=== PATIENT | female | born 1965 | race Caucasian/White ===

== ENCOUNTER 2020-08-06 17:39 | Emergency (ER) | payer OTHER, SELFPAY ==
--- NOTE | 2020-08-06 | XR_ITS ---
EXAMINATION: XR CHEST CLINICAL INFORMATION: Cough with increased mucous and chest pain at night COMPARISON: Chest radiograph 05/18/2018 TECHNIQUE: 2 views of the chest were obtained. FINDINGS: No significant abnormality is noted involving the heart, lungs, mediastinum, bony thorax or soft tissues. Again seen are changes of median sternotomy and an aortic valve prosthesis. A tiny scar is present in the left costophrenic angle. IMPRESSION: No acute intrathoracic disease
[2020-08-06 17:50] VITALS: BP 159/77; PULSE 74; RESP 18; TEMP 36.7; O2SAT 98; BMI 34.9
[2020-08-06 18:12] VITALS: BP 150/78; PULSE 76; RESP 16; TEMP 36.8; O2SAT 98
--- NOTE | 2020-08-06 19:08 | ED.URI ---
HPI - URI/Sore Throat General Chief Complaint: Upper Respiratory Symptoms Stated Complaint: Upper Resp Time Seen by Provider: 08/06/20 18:56 Source: patient Mode of arrival: ambulatory History of Present Illness HPI Narrative: 54-year-old female with no significant past medical history complaining of postnasal drip, productive cough, chest congestion times 5 days. Reports had negative COVID-19 swab on the 6th. Denies fever, chills, CP / SOB, recent travel. Positive sick contacts MD elicited complaint: cough Related Data Previous Rx's Medication Instructions Recorded albuterol sulfate 2 inh INHALATION Q4-6H PRN #1 ea 08/06/20 azithromycin [Zithromax Z-Nico] See Rx Instructions .ROUTE 08/06/20 .COMPLEX #6 tab benzonatate [Tessalon Perles] 100 mg PO TID PRN #14 cap 08/06/20 Allergies Allergy/AdvReac Type Severity Reaction Status Date / Time oxycodone [From PERCOCET] Allergy Intermediate MOOD Verified 08/06/20 17:50 LABILE/DEPRESSION hydromorphone [From DILAUDID] Allergy Unknown AFTER OPEN Unverified 07/14/20 17:01 HEART SURGERY Review of Systems Review of Systems: Constitutional: No Weight loss, No Fever, No Chills, No Night Sweats ENT/Mouth: No Hearing loss, No Ear Pain, + Nasal Congestion, No Sinus Pain, No Hoarseness, No sore throat, + Rhinorrhea, No Swallowing Difficulty Eyes: No Eye Pain, No Swelling, No Redness, No Foreign Body, No Discharge, No Vision Changes Cardiovascular: No Chest Pain, No SOB, No Dyspnea on Exertion Respiratory: + Cough, + Sputum, No Wheezing, No Dyspnea Gastrointestinal: No Nausea, No Vomiting, No Diarrhea, No Constipation, No Abdominal pain Skin: No Skin Lesions, No rash Neuro: No Weakness, No Numbness, No Paresthesias, No Loss of Consciousness, No Dizziness, No Headache Yes all other systems are reviewed and are negative [facility] Past Medical History Attestation statement: The following information was validated with the patient. Surgical History (Updated 08/06/20 @ 17:55 by Shona Alexandra) Aortic valve replaced Social History Social History Alcohol intake: never Smoked in Last 30 Days: No Use of substances other than those prescribed or required for medical reasons: No Any prior treatment program specific to substance use: No Advance Directives: No Advance Directives Information Provided: Yes Physical Exam Vital Signs: Vital Signs: Vital Signs Temp Pulse Resp BP Pulse Ox 08/06/20 18:12 98.3 F 76 16 150/78 H 98 08/06/20 17:50 98.1 F 74 18 159/77 H 98 Body Mass Index 34.9 Const: General: cooperative and healthy appearing Orientation/consciousness: patient oriented x3 Limitations: no limitations HENMT: Head: Yes normal to inspection Ears: hearing grossly normal bilaterally General nose exam: Normal external nose present Face and sinus: Yes normal facial exam Eyes: General: appearance normal, both eyes and all related structures EOM: EOMs intact bilaterally Neck: Neck: Yes normal visual inspection Resp: Effort & Inspection: normal respiratory effort and no stridor Auscultation: clear to auscultation bilaterally, no crackles, no rales, no rhonchi and no wheezes Cardio: Rate: regular rate Heart sounds: S1 normal heart sound present and S2 normal heart sound present Peripheral pulses: Peripheral pulses 2+ throughout Skin: Wounds: no wounds Neuro: General: patient oriented x3 Course Course Course Narrative: CXR unremarkable MDM - URI/Sore Throat MDM Narrative Medical decision making narrative: likely viral syndrome / COVID-19 versus bronchitis versus pneumonia Discharge Plan Discharge Clinical Impression: Upper respiratory infection Patient Disposition: Home, Self-Care Instructions: Upper Respiratory Infection (ED) Additional Instructions: start taking Z-Nico In addition use albuterol inhaler for shortness of breath/cough Test on present for coughing, take as needed You to follow-up the primary care doctor Will call you for COVID-19 resulting in 72 hours positive or negative, in the meantime self isolate Based on your symptoms and history we have sent a COVID-19. Although your RESULT IS PENDING at this time. RESULTS should return within 72 hours. At this time you will be contacted with either NEGATIVE OR POSITIVE results. -Please wait until we contact you for your results. At this time you will be okay for discharge. Please plan for self quarantine for up to 14 days. Do not expose yourself to others. You may not go to work. If testing does come back negative you may return to activities as long as you are no longer having any symptoms for at least 3 days. Please continue to follow cold instructions and wash your hands frequently. You may take Tylenol as directed on the bottle for pain or fever. Patient seen in the emergency department on 04/22/2020 and should be excused from work until negative test results AND until 72 hours without any symptoms AND at least 10 days have passed since symptoms first appeared or since last exposure to COVID-19 positive patient CDC Guidelines for home isolation: - Stay away from others - WEAR A MASK if you are sick AND STAY HOME - Cover your mouth and nose with a tissue when you cough or sneeze. Dispose of tissues in a lined trash can and wash your hands immediately with soap and water for at least 20 seconds. If soap and water are not available, clean hands with alcohol-based hand field clinical engineer that contains at least 60% alcohol. - Clean your hands often with soap and water for at least 20 seconds - Avoid touching your eyes, nose and mouth with unwashed hands - Do not share dishes, drinking glasses, cups, eating utensils, towels, or bedding with other people in your home. After using these items, wash them thoroughly with soap and water or put in the medical cash poster. - Clean high-touch surfaces in your isolation area ( sick room and bathroom) every day; let a caregiver clean and disinfect high-touch surfaces in other areas of the home. Clean the area or item with soap and water or another detergent if it is dirty. Then, use a household disinfectant. - Limit contact with pets and animals: If you must care for a pet, wash your hands before and after interacting with them Prescriptions: New azithromycin [Zithromax Z-Nico] 250 mg tablet See Rx Instructions .ROUTE .COMPLEX Qty: 6 RF: 0 albuterol sulfate 90 mcg/actuation aerosol powdr breath activated 2 inh inhalation Q4-6H PRN (Reason: shortness of breath or wheezing) Qty: 1 RF: 0 benzonatate [Tessalon Perles] 100 mg capsule 100 mg PO TID PRN (Reason: cough) Qty: 14 RF: 0 Referrals: Rosa De León MD [Primary Care Provider] - 3 days Stand Alone Forms: Work/School Release
== END 2020-08-06 19:36 | disposition home or self-care (01) ==
PROVIDERS: Physician Assistant; Emergency Provider Emergency Medicine Emergency Medical Services; PCP Internal Medicine
DX: J06.9 Acute upper respiratory infection, unspecified (principal); Z20.828 Contact with and (suspected) exposure to other viral communicable diseases; Z79.899 Other long term (current) drug therapy
CPT/HCPCS: 71046; 87635; 99283; 99284

== ENCOUNTER 2023-01-27 17:58 | Emergency (ER) | payer OTHER, SELFPAY ==
--- NOTE | ~2023-01-27 | CT_ITS ---
EXAMINATION: CT HEAD WITHOUT CONTRAST CT CERVICAL SPINE WITHOUT CONTRAST CLINICAL INFORMATION: Head trauma. COMPARISON: CT of the head 07/2014. TECHNIQUE: CT scan of the head is performed without contrast with reconstruction imaging performed at the acquisition workstation. CT of the cervical spine was performed without contrast with reconstruction imaging performed at the acquisition workstation. FINDINGS: CT HEAD: SOFT TISSUES: Normal. BONE: No fracture. SINUSES: Clear. MASTOID AIR CELLS: Clear. There is no mass hemorrhage or cerebral edema. Ventricles and basal cisterns are normal. CERVICAL SPINE: Vertebral bodies are normally aligned. There is no fracture or dislocation. There are degenerative disc changes at C5-C6 manifested by disc space narrowing and endplate osteophytes. There is advanced facet arthrosis at the C2-C3, C3-C4 level on the left side. Surrounding soft tissues are unremarkable. CT/CT head/brain wo IV con IMPRESSION: CT HEAD: No acute abnormality. CT CERVICAL SPINE: 1. No acute abnormality. 2. Degenerative spondylosis of the cervical spine.
--- NOTE | ~2023-01-27 | CT_ITS ---
EXAMINATION: CT HEAD WITHOUT CONTRAST CT CERVICAL SPINE WITHOUT CONTRAST CLINICAL INFORMATION: Head trauma. COMPARISON: CT of the head 07/2014. TECHNIQUE: CT scan of the head is performed without contrast with reconstruction imaging performed at the acquisition workstation. CT of the cervical spine was performed without contrast with reconstruction imaging performed at the acquisition workstation. FINDINGS: CT HEAD: SOFT TISSUES: Normal. BONE: No fracture. SINUSES: Clear. MASTOID AIR CELLS: Clear. There is no mass hemorrhage or cerebral edema. Ventricles and basal cisterns are normal. CERVICAL SPINE: Vertebral bodies are normally aligned. There is no fracture or dislocation. There are degenerative disc changes at C5-C6 manifested by disc space narrowing and endplate osteophytes. There is advanced facet arthrosis at the C2-C3, C3-C4 level on the left side. Surrounding soft tissues are unremarkable. CT/CT cervical spine wo IV con IMPRESSION: CT HEAD: No acute abnormality. CT CERVICAL SPINE: 1. No acute abnormality. 2. Degenerative spondylosis of the cervical spine.
[2023-01-27 18:07] VITALS: BP 180/100; PULSE 60; O2SAT 99; BMI 36.4
[2023-01-27 18:10] VITALS: BP 166/77; PULSE 63; RESP 18; TEMP 36.3; O2SAT 100
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
[2023-01-27] MEDS: Acetaminophen 325 MG TABLET 975 MG PO (18:24)
[2023-01-27 19:24] VITALS: BP 144/58; PULSE 59; RESP 12; TEMP 36.6; O2SAT 100
--- NOTE | 2023-01-27 19:25 | PC.NURSE ---
Pt aox4 resting at the bedside. No apparent distress noted. Pt in c-collar, pending ct scan results. VSS. Reports neck pain, /. Pt aware of plan of care.
[2023-01-27 21:15] VITALS: BP 144/68; PULSE 58; RESP 18
[2023-01-27 21:57] VITALS: BP 144/61; PULSE 59; RESP 14; TEMP 36.4; O2SAT 98
--- NOTE | 2023-01-27 21:59 | PC.NURSE ---
Pt aox4 resting at the bedside. No apparent distress noted. Discharge instructions reviewed with pt. Pt verbalizes understanding.
== END 2023-01-27 22:00 | disposition home or self-care (01) ==
PROVIDERS: Emergency Provider Emergency Medicine Emergency Medical Services
DX: S13.4XXA Sprain of ligaments of cervical spine, initial encounter (principal); S06.0X0A Concussion without loss of consciousness, initial encounter; M54.2 Cervicalgia; R51.9 Headache, unspecified; V43.52XA Car driver injured in collision with other type car in traffic accident, initial encounter; Y93.9 Activity, unspecified; Y92.410 Unspecified street and highway as the place of occurrence of the external cause; Y99.9 Unspecified external cause status; Z79.899 Other long term (current) drug therapy
CPT/HCPCS: 70450; 72125; 99284

== ENCOUNTER 2025-02-22 13:07 | Emergency (ER) | payer OTHER, SELFPAY ==
[2025-02-22 13:13] VITALS: BP 164/98; PULSE 113; RESP 16; TEMP 36.6; O2SAT 98; BMI 34.6
--- NOTE | 2025-02-22 13:16 | ED_ITS ---
HPI - General Adult General Chief complaint: General Medical Stated complaint: high BP Related Data Previous Rx's ?Medication ?Instructions ?Recorded albuterol sulfate 90 mcg/actuation 2 inh inhalation Q4-6H PRN 08/06/20 breath activated powder inhaler shortness of breath or wheezing #1 ea azithromycin 250 mg tablet See Rx Instructions PO .COMPLEX #6 08/06/20 (Zithromax Z-Nico) tabs benzonatate 100 mg capsule 100 mg PO TID PRN cough #14 caps 08/06/20 (Tessalon Perles) cyclobenzaprine 10 mg tablet 10 mg PO TID PRN muscle spasm #14 01/27/23 tabs ibuprofen 600 mg tablet 600 mg PO QID PRN pain #90 tabs 01/27/23 Allergies Allergy/AdvReac Type Severity Reaction Status Date / Time oxycodone [From PERCOCET] Allergy Intermediate MOOD Verified 02/22/25 13:18 LABILE/DEPRESSION hydromorphone [From DILAUDID] Allergy Unknown AFTER OPEN Verified 02/22/25 13:18 HEART SURGERY [facility] Past Medical History Surgical History Aortic valve replaced Social History Social History (System 08/09/23 @ 11:37 by Hilda Armijo) Alcohol intake: never Advance Directives: No Advance Directives Information Provided: No Do you have a plan to hurt others: No Plan Physical Exam ED Vital Signs: Vital Signs - 24 hr 02/22/25 13:13 Temperature 97.9 F Pulse Rate 113 H Respiratory Rate 16 Blood Pressure 164/98 H Pulse Oximetry 98 Oxygen Delivery Method Room Air BMI result Body Mass Index 34.6 Course Course Course Narrative: RME, this is a rapid medical exam performed by Shayan Montgomery please refer to primary provider for complete H&P- 59-year-old female with past medical history significant for paroxysmal AFib, hypertension maintained on metoprolol 100 mg b.i.d. reports a fast heart rate since this morning. Denies chest pain. She denies any shortness of breath as well. She took an additional dose of metoprolol 100 mg this afternoon due to tachycardia. Plan for EKG and labs. Her heart rate is around 110 but appears regular in triage Medical Decision Making Lab Data 02/22/25 13:30 02/22/25 13:30 Labs: Lab Results 02/22/25 Range/Units 13:30 WBC 4.0 L (4.8-10.8) X10*3/uL RBC 4.23 (4.20-5.50) X10*6/uL Hgb 12.6 (12.0-16.0) g/dl Hct 38.3 (37.0-47.0) % MCV 90.5 (80.0-98.0) fL MCH 29.8 (27.0-33.0) pg MCHC 32.9 (31.0-35.0) g/dl RDW 12.2 (11.0-16.0) % Plt Count 258 (160-400) X10*3/uL MPV 8.7 L (9.4-12.3) fL Immature Gran % (Auto) 0.3 (0.0-0.4) % Neut % (Auto) 55.6 (45-73) % Lymph % (Auto) 29.4 (20-40) % [place] % (Auto) 9.6 (2-11) % Eos % (Auto) 4.3 H (0-4) % Baso % (Auto) 0.8 (0-2) % Lymph # (Auto) 1.2 (1.2-4.9) X10*3/uL [place] # (Auto) 0.4 (0.1-1.2) X10*3/uL Eos # (Auto) 0.2 (0.0-0.4) X10*3/uL Baso # (Auto) 0.0 (0.0-0.2) X10*3/uL Abs Immat Gran (auto) 0.01 (0.00-0.03) X10*3/uL Absolute Neuts (auto) 2.2 (2.0-8.3) x10*3/uL Absolute Nucleated RBC 0.000 (0.0-0.012) X10*3/uL Nucleated RBC % (auto) 0.0 (0.0-0.2) /100WBC Sodium 139 (135-145) mmol/L Potassium 4.6 (3.3-5.1) mmol/L Chloride 105 (96-108) mmol/L Carbon Dioxide 26 (22-29) mmol/L Anion Gap 13 (12-20) BUN 17 H (9-16) mg/dL Creatinine 0.82 (0.5-1.4) mg/dL Estim Creat Clear Calc 84.8 Estimated GFR > 60 Random Glucose 97 (60-115) mg/dL Calcium 8.9 (8.4-10.2) mg/dL Magnesium 2.2 (1.6-2.6) mg/dL Total Bilirubin 0.4 (0.0-1.0) mg/dL AST 32 H (5-31) U/L ALT 19 (0-31) U/L Alkaline Phosphatase 88 (39-117) U/L Total Protein 7.5 (6.5-8.0) g/dL Albumin 4.3 (3.5-5.0) g/dL Lipase 31 (8-78) U/L Discharge Plan Discharge Clinical Impression: Heart palpitations Patient Disposition: Left Without Being Seen Interventions: LWBS Worksheet Last Done: 02/22/25 16:16 Discharge Date/Time: 02/22/25 16:17
--- NOTE | 2025-02-22 13:17 | ECG_ITS ---
Test Reason : chest pain Blood Pressure : */* mmHG Vent. Rate : 97 BPM Atrial Rate : * BPM P-R Int : * ms QRS Dur : 82 ms QT Int : 344 ms P-R-T Axes : * 21 45 degrees QTcB Int : 436 ms Atrial fibrillation Low voltage QRS Septal infarct (cited on or before 18-May-2018) Abnormal ECG When compared with ECG of 18-May-2018 18:40, Atrial fibrillation has replaced Sinus rhythm Nonspecific T wave abnormality no longer evident in Lateral leads Referred By: Roberto Montgomery Electronically Signed By: Raul Lopez
[2025-02-22 13:34] LABS: MANUAL DIFF FLAG NO
[2025-02-22 13:36] LABS: Basophils Percent Auto 0.8 % (0-2); Eosinophils Absolute Auto 0.2 X10*3/uL (0.0-0.4); Eosinophils Percent Auto 4.3 % (0-4); Hematocrit 38.3 % (37.0-47.0); Hemoglobin 12.6 g/dl (12.0-16.0); Imm Gran Abs Auto 0.01 X10*3/uL (0.00-0.03); Imm Gran Pct Auto 0.3 % (0.0-0.4); Lymphocytes Absolute Auto 1.2 X10*3/uL (1.2-4.9); Lymphocytes Percent Auto 29.4 % (20-40); Mean Corpuscular HGB Conc 32.9 g/dl (31.0-35.0); Mean Corpuscular Hemoglobin 29.8 pg (27.0-33.0); Mean Corpuscular Volume 90.5 fL (80.0-98.0); Mean Platelet Volume 8.7 fL (9.4-12.3); Monocytes Absolute Auto 0.4 X10*3/uL (0.1-1.2); Monocytes Percent Auto 9.6 % (2-11); Neutrophils Absolute Auto 2.2 x10*3/uL (2.0-8.3); Neutrophils Percent Auto 55.6 % (45-73); Platelet Count 258 X10*3/uL (160-400); Red Blood Count 4.23 X10*6/uL (4.20-5.50); Red Cell Distribution Width 12.2 % (11.0-16.0)
[2025-02-22 13:52] LABS: Alanine Aminotransferase 19 U/L (0-31); Albumin Level 4.3 g/dL (3.5-5.0); Alkaline Phosphatase 88 U/L (39-117); Anion Gap 13 (12-20); Aspartate Amino Transferase 32 U/L (5-31); Bilirubin Total 0.4 mg/dL (0.0-1.0); Blood Urea Nitrogen 17 mg/dL (9-16); Calcium 8.9 mg/dL (8.4-10.2); Carbon Dioxide 26 mmol/L (22-29); Chloride 105 mmol/L (96-108); Creatinine Clr Calc Pharmacy 84.8; Estimated Glomerular Filt Rate > 60; Glucose Random 97 mg/dL (60-115); Lipase 31 U/L (8-78); Magnesium 2.2 mg/dL (1.6-2.6); Potassium 4.6 mmol/L (3.3-5.1); Sodium 139 mmol/L (135-145); Total Protein 7.5 g/dL (6.5-8.0)
--- OUTSIDE RECORDS SUMMARY | 2025-02-22 18:51 | XMS_ITS | Clinical Summary ---
Author Organization [facility] Address [address] [place] [address] Phone Care Team Providers Care [employer] Program Director Name Role Phone Nicole Wright MD Primary Care Provider [phone] Allergies No known active allergies Medications amiodarone (PACERONE) 200 mg tablet See Instructions, Take 2 tablets by mouth 2 times per day for 7 days, then take 1 tablet daily thereafter, # 50 tablet, Refills 0, Tot. Refills 0, Maintenance, 06/25/24 12:22:00 EDT, Instructions Replace Required Details, Route to Pharmacy [facility]... 4 Active magnesium oxide (MAG-OX) 400 mg (241.3 elemental magnesium) tablet TAKE 1 TABLET BY MOUTH EVERY DAY 4 Active metoprolol tartrate (LOPRESSOR) 100 mg tablet Take 1.5 Tablets by mouth 2 times daily. 4 Active warfarin (COUMADIN) 5 mg tablet Take 5 mg by mouth See Admin Instructions. May cause heavy bleeding. Take at same time every day. Do not change dietary habits. Active amiodarone (PACERONE) 200 mg tablet Take 1 tablet (200 mg total) by mouth 1 (one) time each day. 4 Active magnesium oxide (MAG-OX) 400 mg (241.3 elemental magnesium) tablet Take 1 tablet (400 mg total) by mouth 1 (one) time each day. 4 Active metoprolol succinate (TOPROL-XL) 100 mg 24 hr tablet Take 1.5 tablets (150 mg total) by mouth 2 (two) times a day. 5 Active warfarin (COUMADIN) 5 mg tablet TAKE 1 - 2 TABLETS BY MOUTH ONCE DAILY DIRECTED BY [facility]ADIN CLINIC 5 Active omeprazole (PriLOSEC) [address] capsule TAKE 1 CAPSULE BY MOUTH EVERY DAY 90 capsule 5 Active omeprazole (PriLOSEC) [address] capsule TAKE 1 CAPSULE BY MOUTH TWICE A DAY 4 025 Discontin ued(Dupli roslyn order) omeprazole (PriLOSEC) [address] capsule Take 1 capsule (40 mg total) by mouth 2 (two) times a day. 180 capsule 1 5 025 Discontin ued(Dupli roslyn order) Active Problems Problem Noted Date Diagnosed Date COVID-19 01/16/2022 Eczema 04/27/2021 Anxiety 01/13/2019 GERD (gastroesophageal reflux disease) 9 Iron deficiency anemia 01/13/2019 Aortic valve disorder 01/22/2007 Overview (10/13/2024): Had aortic valve replacment in 2010, Dr. 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 moderate AR, trivial mitrl valvular regurg Encounters Date Type Department Care Team Description 12/24/2024 9:43 PM EST - 12/24/2024 11:36 PM EST Emergency [facility] Emergency [address] [place] [address] Numbness (Primary Dx); Aortic valve disorder Discharge Disposition: Left Against Medical Advice from Last 3 Months Immunizations Name Administration Dates Next Due Influenza trivalent, 0.5mL, preservative free (Fluarix; FluLaval; Fluzone) ages 6mo and older (Afluria) 3 years and older 07/15/2024,08/22/2020 Meningococcal Polysaccharide 03/23/2005 PPD Test 03/05/2005 Td, Unspecified 03/23/2005 Surgical History Surgery Date Site/Laterality Comments TUBAL LIGATION PROCEDURE: HISTORICAL TUBAL LIGATION CARDIAC SURGERY PROCEDURE: HISTORICAL HEART SURGERY(ASD,VSD,VALVES); COMMENT: in , aortic valve replacement Medical History Medical History Date Comments Iron deficiency anemia 01/13/2019 DX:Iron d eficiency anemia Atrial fibrillation (CMS/HCC V24, CMS/HCC V28) 01/22/2007 DX:Atrial fibrillation ([facility]) ; 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 moderate AR, trivial mitrl valvular regurg Aortic valve disorder 01/22/2007 DX:Aortic valve disorder; COMMENT: Had aortic valve replacment in 2010, Dr. Castellanos, mechanical valve GERD (gastroesophageal reflux disease) 01/13/2019 DX:GERD (gastroesophageal reflux disease) Anxiety 01/13/2019 DX:Anxiety Family History Medical History Relation Name Comments Heart attack Father at age of 50 Relation Name Status Comments Brother Alive Father Maternal Grandfather Maternal Grandmother Mother Alive Paternal Grandfather Paternal Grandmother Sister 1 Alive Sister 2 Alive Sister 3 Alive Social History Tobacco Use Types Packs/Day Years Used Date Smoking Tobacco: Never Smokeless Tobacco: Never Alcohol Use Standard Drinks/Week Comments Yes 0 (1 standard drink = 0.6 oz pur e alcohol) Comments Unknown Sex and Gender Information Value Date Recorded Sex Assigned at Not on file Legal Sex Female 2:37 AM EST Gender Identity Not on file Sexual Orientation Not on file Obstetrics History Last Filed Vital Signs Vital Sign Reading Time Taken Comments Blood Pressure 135/65 12/24/2024 9:53 PM EST Pulse 64 12/24/2024 9:53 PM EST Temperature 36.4 ??C (97.5 ??F) 12/24/2024 9:53 PM ES T Respiratory Rate 16 12/24/2024 9:53 PM EST Oxygen Saturation 97% 12/24/2024 9:53 PM EST Inhaled Oxygen Concentration - - Weight 93.4 kg (206 lb) 12/24/2024 9:53 PM EST Height 165.1 cm (5' 5 ) 12/24/2024 9:53 PM EST Body Mass Index 34.28 12/24/2024 9:53 PM EST Plan of Treatment Upcoming Encounters Date Type Department Care Team (Late st Contact Info) Description 04/12/2025 12:45 PM EDT Office Visit Adult Medicine [facility] [place] [address] [place] [phone] Ed Chan PA [address] [place] [address] Health Maintenance Due Date Last Done Comments Breast Cancer Screening 1966 Hepatitis B Vaccines (1 of 3 - 19+ 3-dose series) 1985 Cervical Cancer Screening: P ap Smear 12/23/2009 12/23/2006, 12/23/2006 DTaP,Tdap,and Td Vaccines (2 - Td or Tdap) 03/23/2015 03/23/2005 Pneumococcal Vaccine: 50+ Years (1 of 1 - PCV) 2016 Zoster Vaccines (1 of 2) 2016 Colorectal Cancer Screening: Colonoscopy 10/04/2022 Depression Screening 10/04/2022 HIV Screening 10/04/2022 Hepatitis C Screening 10/04/2022 Social Influencers of Health Screening 10/04/2022 COVID-19 Vaccine ( - 2023-2 5 season) 2024 Cholesterol Screening (Lipid Panel) 05/18/2026 05/18/2021 Meningococcal ACWY Vaccine Aged Out 03/23/2005 N o longer eligible based on patient's age to complete this topic Influenza Vaccine Completed 07/15/2024, 08/22/2020 HIB Vaccines Aged Out No longer eligi ble based on patient's age to complete this topic HPV Vaccines Aged Out No longer eligi ble based on patient's age to complete this topic Hepatitis A Vaccines Aged Out No long er eligible based on patient's age to complete this topic IPV Vaccines Aged Out No longer eligi ble based on patient's age to complete this topic MMR Vaccines Aged Out No longer eligi ble based on patient's age to complete this topic Meningococcal B Vaccine Aged Out No l onger eligible based on patient's age to complete this topic Pneumococcal Vaccine: Pediatrics (0 to 5 Years) and At-Risk Patients (6 to 64 Years) Aged Out No longer eligible b ased on patient's age to complete this topic RSV Immunization Patients Under 20 months Aged Out No longer eligible b ased on patient's age to complete this topic Varicella Vaccines Aged Out No longer eligible based on patient's age to complete this topic Procedures Procedure Name Priority Date/Time Associated Diagnosis Comments VAS US DUPLEX UPPER EXT VENOUS RIGHT STAT 12/24/2024 11:10 PM EST Numbness POCT GLUCOSE BLOOD Routine 12/24/2024 10 :01 PM EST LIPID PANEL Routine 05/18/2021 HM HPV Routine 12/23/2006 from Last 3 Months or Most Recently Relevant to Health Maintenance Results * Vascular US duplex upper extremity venous right (12/24/2024 11:10 PM EST) Anatomical Region Laterality Modality Vascular, Abdomen Ultrasound 12/25/2024 3:32 AM EST Impressions 12/25/2024 3:37 AM EST No evidence of right upper extremity deep vein thrombosis. -------- FINAL REPORT -------- Dictated By: Lilly Morales Dictated Date: 12/25/2024 03:32 ET Assigned Physician: Lilly Morales Reviewed and Electronically Signed By: Lilly Morales Signed Date: 12/25/2024 03:37 ET Workstation ID: [id number] Transcribed By: Self Edit Transcribed Date: 12/25/2024 03:32 ET Narrative 12/25/2024 3:37 AM EST INDICATION: pain TECHNIQUE: Duplex venous compression ultrasound of the Right upper extremity FINDINGS: Normal flow and respiratory variation were seen within the internal jugular and subclavian veins. The axillary, cephalic, basilic and brachial veins compress normally throughout their length. Procedure Note Lilly Morales MD - 12/25/2024 INDICATION: pain TECHNIQUE: Duplex venous compression ultrasound of the Right upperextremity FINDINGS: Normal flow and respiratory variation were seen within the internaljugular and subclavian veins. The axillary, cephalic, basilic and brachialveins compress normally throughout their length. IMPRESSION: No evidence of right upper extremity deep vein thrombosis. -------- FINAL REPORT -------- Dictated By: Lilly Morales Dictated Date: 12/25/2024 03:32 ET Assigned Physician: Lilly Morales Reviewed and Electronically Signed By: Lilly Morales Signed Date: 12/25/2024 03:37 ET Workstation ID: [id number] Transcribed By: Self Edit Transcribed Date: 12/25/2024 03:32 ET Marleni ROMERO CV VASCULAR PROCEDURES Fin al Result * (ABNORMAL) POCT Glucose, blood (12/24/2024 10:01 PM EST) [facility] Glucose POCT 101(H) 70 - 100 mg/dL 12/24/2024 10:03 PM EST [facility] Blood Capillary blood specimen / Unknown 12/24/2024 10:01 PM EST 12/24/2024 10:04 PM EST Generic Provider Poct LAB POINT OF CARE TEST DOCKED DEVICE UNSOLICITED RESULTS Final Result [facility] [address] [place] [address], * (ABNORMAL) Lipid panel (05/18/2021) [facility] LDL/HDL Ratio 3 0 - 4 Triglycerides 115 0 - 150 mg/dL Cholesterol 193 0 - 200 mg/dL HDL 61 >=40 mg/dL LDL Cholesterol 109(A) 0 - 100 mg/dL Blood Venous blood specimen / Unknown Historical Provider LAB BLOOD ORDERABLES Sanaz l Result * Cervical Cancer Screening: HPV (12/23/2006) [facility] Cervical Cancer Screening: HPV no interpretation , abstracted us Historical Provider HEALTH MAINTENANCE Final Result from Last 3 Months or Most Recently Relevant to Health Maintenance Insurance MEDICAID - [place] Care Teams 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
--- OUTSIDE RECORDS SUMMARY | 2025-02-22 18:51 | XMS_ITS | Patient Health Record ---
Author Organization [facility] Address [address] [place] [address] Care Team Providers Care Tooler Name Role Phone Donna Easley Unavailable [phone] MARJORIE SOL Unavailable [phone] DESIREE ROCHA Unavailable [phone] ALLERGIES Allergen (clinical drug ingredient) Drug/Non Drug Allergy documented on EMR Reaction Allergy Type Onset Date Status semaglutide Wegovy tachycardia Drug Allergy Act piper RESULTS Component Value Reference Range Notes GLYCOHEMOGLOBIN PROFILE Reviewed date:04/22/2024 09:46:16 AM Interpretation: Performing Lab: Notes/Report: GLYCATED HEMOGLOBIN A1C 5.0 <6.5 % ESTIMATED AVERAGE GLUCOSE 97 COMPREHENSIVE METABOLIC PANE L Reviewed date:04/22/2024 09:46:04 AM Interpretation: Performing Lab: Notes/Report: Note Original Orderi ng Provider: DONNA EASLEY PA-C GLUCOSE 97 70-100 mg/dL Reference range applicable to fasting specimens only BUN 19 5-25 mg/dL CREAT 1.08 0.5-1.1 mg/dL GLOMERULAR FILTRATION RATE 60 >60 This eGFR result was calculated using the CKD-EPI 2020 Creatinine Equation SODIUM 140 135-145 mEq/L POTASSIUM 4.2 3.5-5.5 mmol/L CHLORIDE 109 96-110 mmol/L CO2 28 21-32 mmol/L ANION GAP 3 3-11 CALCIUM 9.4 8.5-10.5 mg/dL TOTAL PROTEIN 7.3 6.0-8.0 G/dL ALBUMIN 4.1 3.2-5.0 G/dL BILI,TOTAL 0.3 0.0-1.4 mg/dL SGOT 23 10-42 U/L SGPT 17 10-60 U/L ALK PHOS 75 42-121 U/L CBC WITH AUTO DIFF Reviewed date:04/22/2024 09:46:51 AM Interpretation: Performing Lab: Notes/Report: WBC 4.4 4.8-10.8 x10-3/uL RBC 4.5 3.8-4.8 x10-6/uL HEMOGLOBIN 13.6 11.5-16.0 g/dL HEMATOCRIT 41.7 35-47 % MCV 91.9 79-98 fL MCH 30.0 27-32 pg MCHC 32.6 32-37 g/dL RDW 13.4 11-15 % PLT COUNT 271 130-400 x10-3/uL MEAN PLATELET VOLUME 9.3 7-11 fL NRBC % AUTO 0.0 <1 % NEUT % 56.6 LYMPH % 30.0 MONO % 8.2 EOS % 4.3 BASO % 0.7 IMMATURE GRANULOCYTES % 0.2 NRBC # AUTO 0.00 <0.1 x10-3/uL ABSOLUTE NEUT 2.47 1.5-7.0 x10-3/uL LYMPH # 1.31 1-5.0 x10-3/uL MONO # 0.36 0.2-1.0 x10-3/uL EOS # 0.19 0-0.5 x10-3/uL BASO # 0.03 0-0.2 x10-3/uL IMMATURE GRANULOCYTES # 0.01 0-0.03 x10-3/uL LIPID PROFILE Reviewed date:04/22/2024 09:45:37 AM Interpretation: Performing Lab: Notes/Report: CHOLESTEROL 222 0-200 mg/dL TRIGLYCERIDES 151 0-150 mg/dL TSH Reviewed date:04/22/2024 09:44:41 AM Interpretation: Performing Lab: Notes/Report: TSH 1.16 0.40-4.00 uIU/ml INSULIN LEVEL Reviewed date:04/22/2024 09:45:07 AM Interpretation: Performing Lab: Notes/Report: INSULIN LEVEL 49 3-25 mU/L Insulin reference range based on fasting status. Insulin values vary in non-fasting individuals. VIT D 1, 25-DIHYDROXY Reviewed date:04/28/2024 12:27:45 PM Interpretation: Performing Lab: Notes/Report: Note Original Ordering Provider: DONNA EASLEY PA-C [employer] a member of [address] [place] [address] Childcare Teacher - Merlyn Ryan MD VIT D,1,25-DIHYDROXY 49 20 - 79 pg/mL Vitamin D 1, 25 dihydroxy levels should be primarily used to assess Vitamin D status in patients with renal disease and hypercalcemia. Vitamin D 1,25-dihydroxy levels are generally less than 5 pg/mL in end stage renal disease patients. The preferred initial test for assessing Vitamin D status in the general population is Vitamin D 25-hydroxy (VITD). Test performed at [facility], [address] [place] [address] Anna Marcus MD, PhD - Childcare Teacher Note Original Ordering Provider: DONNA EASLEY PA-C [employer] [address] Childcare Teacher - Merlyn Ryan MD LIPID PROFILE Reviewed date:06/17/2024 09:20:21 AM Interpretation: Performing Lab: Notes/Report: CHOLESTEROL 215 0-200 mg/dL TRIGLYCERIDES 135 0-150 mg/dL REASON FOR REFERRAL No Information MEDICATIONS Medication SIG (Take, Route, Frequency, Duration) Notes Start Date End Date Status Magnesium Oxide 400 MG 1 tablet as neede d Orally Once a day Active Coumadin Active Metoprolol Succinate 100 MG 1 capsule Orally Once a day Active PriLOSEC OTC 20 MG 1 tablet 30 minutes before morning meal Orally Once a day Active SOCIAL HISTORY Tobacco Use: Social History Observation Description Date Details (start date - stop date) Never Smoker NA - NA Sex Assigned At : Social History Observation Description Sex Assigned At Unknown Tobacco Use/Smoking Question Answer Notes Are you a nonsmoker Alcohol Screen (Audit-C) Question Answer Notes Did you have a drink containing alcohol in the p ast year? Yes Points 0 Interpretation Negative PROBLEMS Problem Type ICD Code Onset Dates Problem Status W/U Status Risk SNOMED Code Notes Problem Vitamin D deficiency, unspecified (E55.9) Active confirmed 77231839 Problem Morbid (severe) obesity due to excess calories (E66.01) Active confirmed 93998867477680 Problem Hyperlipidemia, unspecified (E78.5) Active confirmed Hyperlipidemia (21533421) Problem Essential hypertension (I10) Active confirmed 12970191 Problem Body mass index [BMI] 38.0-38.9, adult (Z68.38) Active confirmed 815004673 Problem BMI 35.0-35.9,adult (Z68.35) Active confirmed 471758906 Problem BMI 36.0-36.9,adult (Z68.36) Active confirmed 921070104 Problem Current use of terminal superintendent anticoagulation (Z79.01) Active confirmed 474261116 Problem Aortic valve replaced (Z95.2) Active confirmed 5426444714334 VITAL SIGNS Heart Rate 66 /min 01/11/2025 Oximetry 98 % 01/11/2025 Blood pressure diastolic 84 mm Hg 01/11/2025 Height 64 in 01/11/2025 Blood pressure systolic 136 mm Hg 01/11/2025 Weight 204 lbs 01/11/2025 BMI 35.01 kg/m2 01/11/2025 Encounters Encounter Location Date Provider Diagnosis [facility] [address] [place] [address] [facility] [address] [place] [address] 04/21/2024 [facility] [address] [place] [address] 04/29/2024 [facility] [address] [facility] [address] [place] [address] 05/06/2024 [facility] [address] [place] [address] 05/13/2024 [facility] [facility] [place] [address] 05/14/2024 [facility] [address] [place], [place] 05/19/2024 [facility] [address] [place] [address] 05/21/[address] [facility] [address] [place] [address] 05/22/[address] [facility] [facility] [address] [place] [address] 05/26/2024 [facility] [address] [place] [address] 06/03/2024 DESIREE ROCHA [facility] [address] [facility] [address] [place], [place] 06/10/2024 DESIREE MAGA[facility] [address] [facility] [address] [facility] 119 [place], [place] 06/17/2024 [facility] [address] [facility] [address] [place] [address] 06/26/2024 Donna Svrcek [address] [facility] [address] [place], [place] 09/01/2024 Donna Svrcek Morbid (severe) obes ity due to excess calories E66.01 ; BMI 36.0-36.9,adult Z68.36 ; Essential hypertension I10 ; Aortic valve replaced Z95.2 and Current use of terminal superintendent anticoagulation Z79.01 [address] [address] 02/08/2025 Donna Svrcek Morbid (severe) obes ity due to excess calories E66.01 ; BMI 35.0-35.9,adult Z68.35 ; Essential hypertension I10 ; Aortic valve replaced Z95.2 and Current use of snf anticoagulation Z79.01 [address] 04/08/2024 Donna Svrcek Morbid (severe) obes ity due to excess calories E66.01 ; Body mass index [BMI] 38.0-38.9, adult Z68.38 ; Essential hypertension I10 ; Aortic valve replaced Z95.2 and Current use of terminal superintendent anticoagulation Z79.01 [address] [address] 05/28/2024 Donna Svrcek Morbid (severe) obes ity due to excess calories E66.01 ; BMI 36.0-36.9,adult Z68.36 ; Essential hypertension I10 ; Aortic valve replaced Z95.2 and Current use of snf anticoagulation Z79.01 [address] [address] 07/01/2024 Donna Svrcek Morbid (severe) obes ity due to excess calories E66.01 ; BMI 36.0-36.9,adult Z68.36 ; Essential hypertension I10 ; Aortic valve replaced Z95.2 and Current use of snf anticoagulation Z79.[address] [place] [address] 07/29/2024 Donna Svrcek Morbid (severe) obes ity due to excess calories E66.01 ; BMI 36.0-36.9,adult Z68.36 ; Essential hypertension I10 ; Aortic valve replaced Z95.2 and Current use of snf anticoagulation Z79.[address] [place] [address] 01/11/2025 Donna Svrcek Morbid (severe) obes ity due to excess calories E66.01 ; BMI 35.0-35.9,adult Z68.35 ; Essential hypertension I10 ; Aortic valve replaced Z95.2 and Current use of terminal superintendent anticoagulation Z79.[address] [facility] [address] [place] [address] 04/22/2024 Donna Svrcek [address] [place] [address] 04/29/2024 Donna Svrcek Hyperlipidemia, unspecified E78.[address] [facility] [address] [place] [address] 05/14/2024 Donna Svrcek [address] [place] [address] 05/21/2024 Donna Svrcek [address] [place] [address] 05/22/2024 Donna Svrcek [address] [place] [address] 07/01/2024 Donna Svrcek [address] [place] [address] 07/15/2024 Donna Svrcek [address] [place] [address] 12/28/2024 Donna Svrcek [address] [place] [address] 12/28/[address] [address] [facility] [address] [place] [address] 01/11/2025 Donna Svrcek [address] [place] [address] 02/09/2025 Donna Easley ASSESSMENTS Encounter Date Diagnosis Assessment Notes Treatment Notes Treatment Clinical Notes Section Notes 04/08/2024 Morbid (severe) obesity due to excess calories (ICD-10 - E66.01) #Morbid obesity. 223.9 pounds, BMI 38.1. New patient welcomed to the practice today Seca scale done and reviewed in detail with patient. Reviewed medical weight loss options in detail with patient including phentermine, Contrave, Wegovy, compounded semaglutide, Zepp bound, compounded tirzepatide, metformin, Topamax. She is most interested in Wegovy or compounded semaglutide. We reviewed risk benefits adverse effects of medication in detail. She will check with her insurance in regards to Wegovy coverage. We did discuss that [employer] sometimes will require 3 months of medical weight loss visits prior to coverage. Discussed compounded semaglutide program as an option here in the office which she would like to start today. Will get comprehensive labs and review at follow up visit. Patient will be started on Semaglutide compounded per our office protocol. They will start on 0.25 mg once weekly for weeks 1-4. They will follow up with me in 4 weeks at which time a repeat SECA scale will be reviewed. If Semaglutide has been tolerated well, the dose will increase to 0.5 mg once weekly for weeks 5-8. Follow up with the provider every 4 weeks with repeat SECA scale is required. If tolerated, dose will be increased to 1 mg after 8 weeks for weeks 9-12. Prior authorization for Wegovy will be started between weeks 11-13 and can take up to 4 weeks to complete. Out of pocket cost was reviewed with patient and escalating cost with escalating dose was reviewed. Discussed importance of supplementation with probiotics, B complex vitamins. We also reviewed lab monitoring routinely throughout. Discussed importance of protein intake, water intake, regular exercise and good sleep habits. The patient will continue exercise regimen with an emphasis on improving/increasing steps to at least 6,000-10,000 steps per day. Increasing cardio and strength training exercises as tolerated to improve weight loss and work on building muscle mass. Patient is committed to smarter eating with calorie counting and mindful eating. Limiting processed foods and carbohydrates and increasing leafy greens and lean proteins as well as fruits into their diet. Patient was counseled on the importance of eating local, organic food when possible. Patient has been counseled regarding effects of GLP/GIP-1 agonists and other FDA approved weight loss medications with regards to a multifactorial approach of weight loss as mentioned above and that the medication alone will not be sufficient to meet patients goals. We discussed holistic medication approach with emphasis on lifestyle modification. Discussed obesity as it increases risk of diabetes, cardiovascular disease, and/or organ damage. We spent a lot of time discussing the relationship between food, exercise, sleep, mental health, and obesity. We discussed the importance of having SECAs done every visit and having accountability done during these visits. That the scale is done to monitor not only weight loss but the body composition during medication management and healthy lifestyle changes. We discussed that if the patient is unable at times to financially afford this scale that we would rather waive the fee and have the scale done than have the patient not have the scale obtained. #HTN- currently well controlled, followed by PCP. #AVR- s/p AVR 2010. On coumadin. Weight Consult Plan: Patient has been found to be obese with a BMI of 38.1. Patient has class 2 obesity. Patient was reassured and welcomed to the practice. We discussed that we stress a hollistic medical approach with emphasis on lifestyle modification. Patient was informed that a healthy lifestyle with exercise and good eating habits can help reduce his risk of medical complications. He is explained that obesity increases his risk of diabetes, cardiovascular disease, or organ damage. We spent a lot of time discussing the relationship between food, exercise, sleep, mental health and obesity. Patient was counseled on the importance EATING local, organic food when possible. Patient was educated on clean 15 and dirty dozen. I provided information about reading books called The Food Rules by Geovani Kiran and Eat Fat Get Lean by Dr Tai Sanchez. Self education is important in the journey for weight management. Patient was offered diagnostic testing. We want to measure visceral adiposity, advanced body composition, adverse lipids, fatty acid balance, risk for heart disease and atherosclerosis, markers of inflammation and genetic susceptibility. Patient was counseled on weight management and was advised to lose weight using B. Lifestyle management which includes several strategies as below 1. Eat a low carbohydrate good fat good protein diet. Eliminate refined carbohydrates from the diet. Continue blood sugar and sugared beverages. Eat local organic when possible. Cook your own meals. Read food labels. None about healthy snacks. Portion control and food with low glycemic index 2. Exercise regularly. Try to get at least 6000 steps a day. Use a predominant to track activity level. Consider using apps like [employer], [employer], lose it, stick as needed for self-monitoring and weight management. Consider group exercises. Consider hiring a household personal assistant. Regular exercise is johnson to sustainable health and prevents as a buffer against weight regain 3. Sleep is most important for healing. Tried to sleep at least 8 hours a night. A good quality sleep needs a sleep ritual with ideal room temperature of around 68. It might help to take a shower and have no electronics in the room and sleep in a very dark room without artificial light. Start her sleep routine and get up early in the morning and go to bed on time 4. Make a social connection. Surround yourself with positive people with positive energy. Connect with friends and family. 5. Get into the habit of meditating and mindfulness while doing everything. 6. Go outside and connect with nature. C. Prescription medications Patient was educated on the use of prescription medications for medical weight loss. This is a growing list and includes phentermine, Topamax,Qsymia, contrave, belviq and saxenda. All prescription medications could have side effects including but not limited to kidney stones, seizure disorder cardiac arrhythmias heart attack pancreatitis etc. etc.. Patient was encouraged to read the prescription insert and have coaching with their pharmacist and make an informed decision about taking medication and know that these medications are being prescribed with good intentions and we do not know how a patient would react to her medication. Sudden medications are FDA approved for weight loss and there is also off label use depending on patient's inability to afford medications in an attempt to lose weight D. Behavioral counseling was done to establish a relationship between food and an mood. Patient was provided information about local counseling and psychiatry and Dr Ortez at [facility] We would like to cover regular topics and build on low glycemic eating exercise mindful eating, using yoga and meditation along with deep breathing and connecting with friends and family. E. MASS PAT reviewed, Patient's current medications were reviewed and opinion was given on medication that can cause weight gain and can be substituted F. Patient was assessed for risk with obesity including and not limiting to atherosclerosis heart disease stroke kidney disease, restrictive lung disease, irritable bowel syndrome and overall mortality. Risk of developing prediabetes diabetes and metabolic syndrome was discussed G. Therapeutic plan: We have decided to make therapeutic plan which would include choosing wisely on calories restricting portion getting active, tracking weight, getting good quality sleep and working on time management H. Patient will follow up in (4) weeks for weight management Total time spent today was 60 minutes of which greater than 50% was spent on coordinating and counseling Case discussed with collaborating physician Dennis Sol who reviewed the assessment and plan. Chart, medications, labs, vital signs reviewed. Dictation was accomplished with the use of [employer] voice recognition software, prone to medical misidentifications and grammatical errors. This is unintentional and the practitioner does try to identify and correct these, but some could still be present. Please do not hesitate to contact practitioner for clarification. All questions answered to patients satisfaction. Patient verbalized understanding of diagnosis and treatments explained. To call sooner prior to next visit it any questions/concerns arise. 04/08/2024 Body mass index [BMI] 38.0-38.9, adult (ICD-10 - Z68.38) #Morbid obesity. 223.9 pounds, BMI 38.1. New patient welcomed to the practice today Seca scale done and reviewed in detail with patient. Reviewed medical weight loss options in detail with patient including phentermine, Contrave, Wegovy, compounded semaglutide, Zepp bound, compounded tirzepatide, metformin, Topamax. She is most interested in Wegovy or compounded semaglutide. We reviewed risk benefits adverse effects of medication in detail. She will check with her insurance in regards to Wegovy coverage. We did discuss that [facility] sometimes will require 3 months of medical weight loss visits prior to coverage. Discussed compounded semaglutide program as an option here in the office which she would like to start today. Will get comprehensive labs and review at follow up visit. Patient will be started on Semaglutide compounded per our office protocol. They will start on 0.25 mg once weekly for weeks 1-4. They will follow up with me in 4 weeks at which time a repeat SECA scale will be reviewed. If Semaglutide has been tolerated well, the dose will increase to 0.5 mg once weekly for weeks 5-8. Follow up with the provider every 4 weeks with repeat SECA scale is required. If tolerated, dose will be increased to 1 mg after 8 weeks for weeks 9-12. Prior authorization for Wegovy will be started between weeks 11-13 and can take up to 4 weeks to complete. Out of pocket cost was reviewed with patient and escalating cost with escalating dose was reviewed. Discussed importance of supplementation with probiotics, B complex vitamins. We also reviewed lab monitoring routinely throughout. Discussed importance of protein intake, water intake, regular exercise and good sleep habits. The patient will continue exercise regimen with an emphasis on improving/increasing steps to at least 6,000-10,000 steps per day. Increasing cardio and strength training exercises as tolerated to improve weight loss and work on building muscle mass. Patient is committed to smarter eating with calorie counting and mindful eating. Limiting processed foods and carbohydrates and increasing leafy greens and lean proteins as well as fruits into their diet. Patient was counseled on the importance of eating local, organic food when possible. Patient has been counseled regarding effects of GLP/GIP-1 agonists and other FDA approved weight loss medications with regards to a multifactorial approach of weight loss as mentioned above and that the medication alone will not be sufficient to meet patients goals. We discussed holistic medication approach with emphasis on lifestyle modification. Discussed obesity as it increases risk of diabetes, cardiovascular disease, and/or organ damage. We spent a lot of time discussing the relationship between food, exercise, sleep, mental health, and obesity. We discussed the importance of having SECAs done every visit and having accountability done during these visits. That the scale is done to monitor not only weight loss but the body composition during medication management and healthy lifestyle changes. We discussed that if the patient is unable at times to financially afford this scale that we would rather waive the fee and have the scale done than have the patient not have the scale obtained. #HTN- currently well controlled, followed by PCP. #AVR- s/p AVR 2010. On coumadin. Weight Consult Plan: Patient has been found to be obese with a BMI of 38.1. Patient has class 2 obesity. Patient was reassured and welcomed to the practice. We discussed that we stress a hollistic medical approach with emphasis on lifestyle modification. Patient was informed that a healthy lifestyle with exercise and good eating habits can help reduce his risk of medical complications. He is explained that obesity increases his risk of diabetes, cardiovascular disease, or organ damage. We spent a lot of time discussing the relationship between food, exercise, sleep, mental health and obesity. Patient was counseled on the importance EATING local, organic food when possible. Patient was educated on clean 15 and dirty dozen. I provided information about reading books called The Food Rules by Geovani Kiran and Eat Fat Get Lean by Dr Tai Sanchez. Self education is important in the journey for weight management. Patient was offered diagnostic testing. We want to measure visceral adiposity, advanced body composition, adverse lipids, fatty acid balance, risk for heart disease and atherosclerosis, markers of inflammation and genetic susceptibility. Patient was counseled on weight management and was advised to lose weight using B. Lifestyle management which includes several strategies as below 1. Eat a low carbohydrate good fat good protein diet. Eliminate refined carbohydrates from the diet. Continue blood sugar and sugared beverages. Eat local organic when possible. Cook your own meals. Read food labels. None about healthy snacks. Portion control and food with low glycemic index 2. Exercise regularly. Try to get at least 6000 steps a day. Use a predominant to track activity level. Consider using apps like [employer], [employer], lose it, stick as needed for self-monitoring and weight management. Consider group exercises. Consider hiring a household personal assistant. Regular exercise is johnson to sustainable health and prevents as a buffer against weight regain 3. Sleep is most important for healing. Tried to sleep at least 8 hours a night. A good quality sleep needs a sleep ritual with ideal room temperature of around 68. It might help to take a shower and have no electronics in the room and sleep in a very dark room without artificial light. Start her sleep routine and get up early in the morning and go to bed on time 4. Make a social connection. Surround yourself with positive people with positive energy. Connect with friends and family. 5. Get into the habit of meditating and mindfulness while doing everything. 6. Go outside and connect with nature. C. Prescription medications Patient was educated on the use of prescription medications for medical weight loss. This is a growing list and includes phentermine, Topamax,Qsymia, contrave, belviq and saxenda. All prescription medications could have side effects including but not limited to kidney stones, seizure disorder cardiac arrhythmias heart attack pancreatitis etc. etc.. Patient was encouraged to read the prescription insert and have coaching with their pharmacist and make an informed decision about taking medication and know that these medications are being prescribed with good intentions and we do not know how a patient would react to her medication. Sudden medications are FDA approved for weight loss and there is also off label use depending on patient's inability to afford medications in an attempt to lose weight D. Behavioral counseling was done to establish a relationship between food and an mood. Patient was provided information about local counseling and psychiatry and Dr Ortez at [facility] We would like to cover regular topics and build on low glycemic eating exercise mindful eating, using yoga and meditation along with deep breathing and connecting with friends and family. E. MASS PAT reviewed, Patient's current medications were reviewed and opinion was given on medication that can cause weight gain and can be substituted F. Patient was assessed for risk with obesity including and not limiting to atherosclerosis heart disease stroke kidney disease, restrictive lung disease, irritable bowel syndrome and overall mortality. Risk of developing prediabetes diabetes and metabolic syndrome was discussed G. Therapeutic plan: We have decided to make therapeutic plan which would include choosing wisely on calories restricting portion getting active, tracking weight, getting good quality sleep and working on time management H. Patient will follow up in (4) weeks for weight management Total time spent today was 60 minutes of which greater than 50% was spent on coordinating and counseling Case discussed with collaborating physician Dennis Sol who reviewed the assessment and plan. Chart, medications, labs, vital signs reviewed. Dictation was accomplished with the use of [employer] voice recognition software, prone to medical misidentifications and grammatical errors. This is unintentional and the practitioner does try to identify and correct these, but some could still be present. Please do not hesitate to contact practitioner for clarification. All questions answered to patients satisfaction. Patient verbalized understanding of diagnosis and treatments explained. To call sooner prior to next visit it any questions/concerns arise. 04/29/2024 Hyperlipidemia, unspecified (ICD-10 - E78.5) 05/28/2024 Morbid (severe) obesity due to excess calories (ICD-10 - E66.01) #Morbid obesity. 05/28/24: 215.9 lbs, BMI 36.8. Sema 0.25 mg She is doing well on compounded semaglutide. She has chosen to stay at the 0.25 mg dose however plans to increase next week to 0.5 mg. Weight is down 8 pounds. Fat mass is down 7 pounds. Discussed importance of increased hydration, increased exercise and regular protein intake. She will also continue SHILO injections every 2 weeks as well. Follow-up with me in 4 to 6 weeks sooner with any concerns. 05/14/24: Sema 0.25 mg, MICC 05/06/24: Sema 0.25 mg 04/29/24: Sema 0.25 mg, MICC 04/21/24: Sema 0.25 mg 04/14/24: Sema 0.25 mg, MICC 04/08/24: 223.9 pounds, BMI 38.1. New patient welcomed to the practice today Seca scale done and reviewed in detail with patient. Reviewed medical weight loss options in detail with patient including phentermine, Contrave, Wegovy, compounded semaglutide, Zepp bound, compounded tirzepatide, metformin, Topamax. She is most interested in Wegovy or compounded semaglutide. We reviewed risk benefits adverse effects of medication in detail. She will check with her insurance in regards to Wegovy coverage. We did discuss that [facility] sometimes will require 3 months of medical weight loss visits prior to coverage. Discussed compounded semaglutide program as an option here in the office which she would like to start today. Will get comprehensive labs and review at follow up visit. The patient will continue exercise regimen with an emphasis on improving/increasing steps to at least 6,000-10,000 steps per day. Increasing cardio and strength training exercises as tolerated to improve weight loss and work on building muscle mass. Patient is committed to smarter eating with calorie counting and mindful eating. Limiting processed foods and carbohydrates and increasing leafy greens and lean proteins as well as fruits into their diet. Patient was counseled on the importance of eating local, organic food when possible. Patient has been counseled regarding effects of GLP/GIP-1 agonists and other FDA approved weight loss medications with regards to a multifactorial approach of weight loss as mentioned above and that the medication alone will not be sufficient to meet patients goals. We discussed holistic medication approach with emphasis on lifestyle modification. Discussed obesity as it increases risk of diabetes, cardiovascular disease, and/or organ damage. We spent a lot of time discussing the relationship between food, exercise, sleep, mental health, and obesity. We discussed the importance of having SECAs done every visit and having accountability done during these visits. That the scale is done to monitor not only weight loss but the body composition during medication management and healthy lifestyle changes. We discussed that if the patient is unable at times to financially afford this scale that we would rather waive the fee and have the scale done than have the patient not have the scale obtained. #HTN- currently well controlled, followed by PCP. #AVR- s/p AVR 2010. On coumadin. Case discussed with collaborating physician Dennis Sol who reviewed the assessment and plan. Chart, medications, labs, vital signs reviewed. Dictation was accomplished with the use of [employer] voice recognition software, prone to medical misidentifications and grammatical errors. This is unintentional and the practitioner does try to identify and correct these, but some could still be present. Please do not hesitate to contact practitioner for clarification. All questions answered to patients satisfaction. Patient verbalized understanding of diagnosis and treatments explained. To call sooner prior to next visit it any questions/concerns arise. 05/28/2024 BMI 36.0-36.9,adult (ICD-10 - Z68.36) #Morbid obesity. 05/28/24: 215.9 lbs, BMI 36.8. Sema 0.25 mg She is doing well on compounded semaglutide. She has chosen to stay at the 0.25 mg dose however plans to increase next week to 0.5 mg. Weight is down 8 pounds. Fat mass is down 7 pounds. Discussed importance of increased hydration, increased exercise and regular protein intake. She will also continue SHILO injections every 2 weeks as well. Follow-up with me in 4 to 6 weeks sooner with any concerns. 05/14/24: Sema 0.25 mg, MICC 05/06/24: Sema 0.25 mg 04/29/24: Sema 0.25 mg, MICC 04/21/24: Sema 0.25 mg 04/14/24: Sema 0.25 mg, MICC 04/08/24: 223.9 pounds, BMI 38.1. New patient welcomed to the practice today Seca scale done and reviewed in detail with patient. Reviewed medical weight loss options in detail with patient including phentermine, Contrave, Wegovy, compounded semaglutide, Zepp bound, compounded tirzepatide, metformin, Topamax. She is most interested in Wegovy or compounded semaglutide. We reviewed risk benefits adverse effects of medication in detail. She will check with her insurance in regards to Wegovy coverage. We did discuss that [facility] sometimes will require 3 months of medical weight loss visits prior to coverage. Discussed compounded semaglutide program as an option here in the office which she would like to start today. Will get comprehensive labs and review at follow up visit. The patient will continue exercise regimen with an emphasis on improving/increasing steps to at least 6,000-10,000 steps per day. Increasing cardio and strength training exercises as tolerated to improve weight loss and work on building muscle mass. Patient is committed to smarter eating with calorie counting and mindful eating. Limiting processed foods and carbohydrates and increasing leafy greens and lean proteins as well as fruits into their diet. Patient was counseled on the importance of eating local, organic food when possible. Patient has been counseled regarding effects of GLP/GIP-1 agonists and other FDA approved weight loss medications with regards to a multifactorial approach of weight loss as mentioned above and that the medication alone will not be sufficient to meet patients goals. We discussed holistic medication approach with emphasis on lifestyle modification. Discussed obesity as it increases risk of diabetes, cardiovascular disease, and/or organ damage. We spent a lot of time discussing the relationship between food, exercise, sleep, mental health, and obesity. We discussed the importance of having SECAs done every visit and having accountability done during these visits. That the scale is done to monitor not only weight loss but the body composition during medication management and healthy lifestyle changes. We discussed that if the patient is unable at times to financially afford this scale that we would rather waive the fee and have the scale done than have the patient not have the scale obtained. #HTN- currently well controlled, followed by PCP. #AVR- s/p AVR 2010. On coumadin. Case discussed with collaborating physician Dennis Sol who reviewed the assessment and plan. Chart, medications, labs, vital signs reviewed. Dictation was accomplished with the use of [employer] voice recognition software, prone to medical misidentifications and grammatical errors. This is unintentional and the practitioner does try to identify and correct these, but some could still be present. Please do not hesitate to contact practitioner for clarification. All questions answered to patients satisfaction. Patient verbalized understanding of diagnosis and treatments explained. To call sooner prior to next visit it any questions/concerns arise. 07/01/2024 Morbid (severe) obesity due to excess calories (ICD-10 - E66.01) #Morbid obesity. 07/01/24: 211.3 pounds, BMI 36.0. She has done well on compounded semaglutide. Will continue 0.5 mg dose today. Will plan to submit Wegovy at the end of next week. Discussed proper use and demonstrated pen autoinjector. She will continue to work on increased protein, increased hydration and exercise. Follow-up in 4 weeks sooner with any concerns. 05/28/24: 215.9 lbs, BMI 36.8. Sema 0.25 mg She is doing well on compounded semaglutide. She has chosen to stay at the 0.25 mg dose however plans to increase next week to 0.5 mg. Weight is down 8 pounds. Fat mass is down 7 pounds. Discussed importance of increased hydration, increased exercise and regular protein intake. She will also continue SHILO injections every 2 weeks as well. Follow-up with me in 4 to 6 weeks sooner with any concerns. 05/14/24: Sema 0.25 mg, MICC 05/06/24: Sema 0.25 mg 04/29/24: Sema 0.25 mg, MICC 04/21/24: Sema 0.25 mg 04/14/24: Sema 0.25 mg, MICC 04/08/24: 223.9 pounds, BMI 38.1. New patient welcomed to the practice today Seca scale done and reviewed in detail with patient. Reviewed medical weight loss options in detail with patient including phentermine, Contrave, Wegovy, compounded semaglutide, Zepp bound, compounded tirzepatide, metformin, Topamax. She is most interested in Wegovy or compounded semaglutide. We reviewed risk benefits adverse effects of medication in detail. She will check with her insurance in regards to Wegovy coverage. We did discuss that [facility] sometimes will require 3 months of medical weight loss visits prior to coverage. Discussed compounded semaglutide program as an option here in the office which she would like to start today. Will get comprehensive labs and review at follow up visit. The patient will continue exercise regimen with an emphasis on improving/increasing steps to at least 6,000-10,000 steps per day. Increasing cardio and strength training exercises as tolerated to improve weight loss and work on building muscle mass. Patient is committed to smarter eating with calorie counting and mindful eating. Limiting processed foods and carbohydrates and increasing leafy greens and lean proteins as well as fruits into their diet. Patient was counseled on the importance of eating local, organic food when possible. Patient has been counseled regarding effects of GLP/GIP-1 agonists and other FDA approved weight loss medications with regards to a multifactorial approach of weight loss as mentioned above and that the medication alone will not be sufficient to meet patients goals. We discussed holistic medication approach with emphasis on lifestyle modification. Discussed obesity as it increases risk of diabetes, cardiovascular disease, and/or organ damage. We spent a lot of time discussing the relationship between food, exercise, sleep, mental health, and obesity. We discussed the importance of having SECAs done every visit and having accountability done during these visits. That the scale is done to monitor not only weight loss but the body composition during medication management and healthy lifestyle changes. We discussed that if the patient is unable at times to financially afford this scale that we would rather waive the fee and have the scale done than have the patient not have the scale obtained. #HTN- currently well controlled, followed by PCP. #AVR- s/p AVR 2010. On coumadin. Case discussed with collaborating physician Dennis Sol who reviewed the assessment and plan. Chart, medications, labs, vital signs reviewed. Dictation was accomplished with the use of [employer] voice recognition software, prone to medical misidentifications and grammatical errors. This is unintentional and the practitioner does try to identify and correct these, but some could still be present. Please do not hesitate to contact practitioner for clarification. All questions answered to patients satisfaction. Patient verbalized understanding of diagnosis and treatments explained. To call sooner prior to next visit it any questions/concerns arise. 07/01/2024 BMI 36.0-36.9,adult (ICD-10 - Z68.36) #Morbid obesity. 07/01/24: 211.3 pounds, BMI 36.0. She has done well on compounded semaglutide. Will continue 0.5 mg dose today. Will plan to submit Wegovy at the end of next week. Discussed proper use and demonstrated pen autoinjector. She will continue to work on increased protein, increased hydration and exercise. Follow-up in 4 weeks sooner with any concerns. 05/28/24: 215.9 lbs, BMI 36.8. Sema 0.25 mg She is doing well on compounded semaglutide. She has chosen to stay at the 0.25 mg dose however plans to increase next week to 0.5 mg. Weight is down 8 pounds. Fat mass is down 7 pounds. Discussed importance of increased hydration, increased exercise and regular protein intake. She will also continue SHILO injections every 2 weeks as well. Follow-up with me in 4 to 6 weeks sooner with any concerns. 05/14/24: Sema 0.25 mg, MICC 05/06/24: Sema 0.25 mg 04/29/24: Sema 0.25 mg, MICC 04/21/24: Sema 0.25 mg 04/14/24: Sema 0.25 mg, MICC 04/08/24: 223.9 pounds, BMI 38.1. New patient welcomed to the practice today Seca scale done and reviewed in detail with patient. Reviewed medical weight loss options in detail with patient including phentermine, Contrave, Wegovy, compounded semaglutide, Zepp bound, compounded tirzepatide, metformin, Topamax. She is most interested in Wegovy or compounded semaglutide. We reviewed risk benefits adverse effects of medication in detail. She will check with her insurance in regards to Wegovy coverage. We did discuss that [facility] sometimes will require 3 months of medical weight loss visits prior to coverage. Discussed compounded semaglutide program as an option here in the office which she would like to start today. Will get comprehensive labs and review at follow up visit. The patient will continue exercise regimen with an emphasis on improving/increasing steps to at least 6,000-10,000 steps per day. Increasing cardio and strength training exercises as tolerated to improve weight loss and work on building muscle mass. Patient is committed to smarter eating with calorie counting and mindful eating. Limiting processed foods and carbohydrates and increasing leafy greens and lean proteins as well as fruits into their diet. Patient was counseled on the importance of eating local, organic food when possible. Patient has been counseled regarding effects of GLP/GIP-1 agonists and other FDA approved weight loss medications with regards to a multifactorial approach of weight loss as mentioned above and that the medication alone will not be sufficient to meet patients goals. We discussed holistic medication approach with emphasis on lifestyle modification. Discussed obesity as it increases risk of diabetes, cardiovascular disease, and/or organ damage. We spent a lot of time discussing the relationship between food, exercise, sleep, mental health, and obesity. We discussed the importance of having SECAs done every visit and having accountability done during these visits. That the scale is done to monitor not only weight loss but the body composition during medication management and healthy lifestyle changes. We discussed that if the patient is unable at times to financially afford this scale that we would rather waive the fee and have the scale done than have the patient not have the scale obtained. #HTN- currently well controlled, followed by PCP. #AVR- s/p AVR 2010. On coumadin. Case discussed with collaborating physician Dennis Sol who reviewed the assessment and plan. Chart, medications, labs, vital signs reviewed. Dictation was accomplished with the use of [employer] voice recognition software, prone to medical misidentifications and grammatical errors. This is unintentional and the practitioner does try to identify and correct these, but some could still be present. Please do not hesitate to contact practitioner for clarification. All questions answered to patients satisfaction. Patient verbalized understanding of diagnosis and treatments explained. To call sooner prior to next visit it any questions/concerns arise. 07/29/2024 Morbid (severe) obesity due to excess calories (ICD-10 - E66.01) #Morbid obesity. 07/29/24: 215.8 pounds, BMI 36.8. She has been off of compounded semaglutide for 3 weeks. Unfortunately she did have to undergo a cardiac ablation this week. She is healing well and will have follow-up with cardiology on Saturday. Has not been cleared yet to resume exercise. She does report she received notification from [employer] that her appeal was approved for [email or web address] and would like prescription sent to pharmacy. Discussed healthy diet and hydration. Await cardiac clearance prior to resuming exercise regimen. Will follow-up in 4 weeks sooner with any concerns. 07/01/24: 211.3 pounds, BMI 36.0. She has done well on compounded semaglutide. Will continue 0.5 mg dose today. Will plan to submit Wegovy at the end of next week. Discussed proper use and demonstrated pen autoinjector. She will continue to work on increased protein, increased hydration and exercise. Follow-up in 4 weeks sooner with any concerns. 05/28/24: 215.9 lbs, BMI 36.8. Sema 0.25 mg She is doing well on compounded semaglutide. She has chosen to stay at the 0.25 mg dose however plans to increase next week to 0.5 mg. Weight is down 8 pounds. Fat mass is down 7 pounds. Discussed importance of increased hydration, increased exercise and regular protein intake. She will also continue SHILO injections every 2 weeks as well. Follow-up with me in 4 to 6 weeks sooner with any concerns. 05/14/24: Sema 0.25 mg, MICC 05/06/24: Sema 0.25 mg 04/29/24: Sema 0.25 mg, MICC 04/21/24: Sema 0.25 mg 04/14/24: Sema 0.25 mg, MICC 04/08/24: 223.9 pounds, BMI 38.1. New patient welcomed to the practice today Seca scale done and reviewed in detail with patient. Reviewed medical weight loss options in detail with patient including phentermine, Contrave, Wegovy, compounded semaglutide, Zepp bound, compounded tirzepatide, metformin, Topamax. She is most interested in Wegovy or compounded semaglutide. We reviewed risk benefits adverse effects of medication in detail. She will check with her insurance in regards to Wegovy coverage. We did discuss that [facility] sometimes will require 3 months of medical weight loss visits prior to coverage. Discussed compounded semaglutide program as an option here in the office which she would like to start today. Will get comprehensive labs and review at follow up visit. The patient will continue exercise regimen with an emphasis on improving/increasing steps to at least 6,000-10,000 steps per day. Increasing cardio and strength training exercises as tolerated to improve weight loss and work on building muscle mass. Patient is committed to smarter eating with calorie counting and mindful eating. Limiting processed foods and carbohydrates and increasing leafy greens and lean proteins as well as fruits into their diet. Patient was counseled on the importance of eating local, organic food when possible. Patient has been counseled regarding effects of GLP/GIP-1 agonists and other FDA approved weight loss medications with regards to a multifactorial approach of weight loss as mentioned above and that the medication alone will not be sufficient to meet patients goals. We discussed holistic medication approach with emphasis on lifestyle modification. Discussed obesity as it increases risk of diabetes, cardiovascular disease, and/or organ damage. We spent a lot of time discussing the relationship between food, exercise, sleep, mental health, and obesity. We discussed the importance of having SECAs done every visit and having accountability done during these visits. That the scale is done to monitor not only weight loss but the body composition during medication management and healthy lifestyle changes. We discussed that if the patient is unable at times to financially afford this scale that we would rather waive the fee and have the scale done than have the patient not have the scale obtained. #HTN- currently well controlled, followed by PCP. #AVR- s/p AVR 2010. On coumadin. Case discussed with collaborating physician Dennis Sol who reviewed the assessment and plan. Chart, medications, labs, vital signs reviewed. Dictation was accomplished with the use of [employer] voice recognition software, prone to medical misidentifications and grammatical errors. This is unintentional and the practitioner does try to identify and correct these, but some could still be present. Please do not hesitate to contact practitioner for clarification. All questions answered to patients satisfaction. Patient verbalized understanding of diagnosis and treatments explained. To call sooner prior to next visit it any questions/concerns arise. 07/29/2024 BMI 36.0-36.9,adult (ICD-10 - Z68.36) #Morbid obesity. 07/29/24: 215.8 pounds, BMI 36.8. She has been off of compounded semaglutide for 3 weeks. Unfortunately she did have to undergo a cardiac ablation this week. She is healing well and will have follow-up with cardiology on Saturday. Has not been cleared yet to resume exercise. She does report she received notification from [employer] that her appeal was approved for [email or web address] and would like prescription sent to pharmacy. Discussed healthy diet and hydration. Await cardiac clearance prior to resuming exercise regimen. Will follow-up in 4 weeks sooner with any concerns. 07/01/24: 211.3 pounds, BMI 36.0. She has done well on compounded semaglutide. Will continue 0.5 mg dose today. Will plan to submit Wegovy at the end of next week. Discussed proper use and demonstrated pen autoinjector. She will continue to work on increased protein, increased hydration and exercise. Follow-up in 4 weeks sooner with any concerns. 05/28/24: 215.9 lbs, BMI 36.8. Sema 0.25 mg She is doing well on compounded semaglutide. She has chosen to stay at the 0.25 mg dose however plans to increase next week to 0.5 mg. Weight is down 8 pounds. Fat mass is down 7 pounds. Discussed importance of increased hydration, increased exercise and regular protein intake. She will also continue SHILO injections every 2 weeks as well. Follow-up with me in 4 to 6 weeks sooner with any concerns. 05/14/24: Sema 0.25 mg, MICC 05/06/24: Sema 0.25 mg 04/29/24: Sema 0.25 mg, MICC 04/21/24: Sema 0.25 mg 04/14/24: Sema 0.25 mg, MICC 04/08/24: 223.9 pounds, BMI 38.1. New patient welcomed to the practice today Seca scale done and reviewed in detail with patient. Reviewed medical weight loss options in detail with patient including phentermine, Contrave, Wegovy, compounded semaglutide, Zepp bound, compounded tirzepatide, metformin, Topamax. She is most interested in Wegovy or compounded semaglutide. We reviewed risk benefits adverse effects of medication in detail. She will check with her insurance in regards to Wegovy coverage. We did discuss that [facility] sometimes will require 3 months of medical weight loss visits prior to coverage. Discussed compounded semaglutide program as an option here in the office which she would like to start today. Will get comprehensive labs and review at follow up visit. The patient will continue exercise regimen with an emphasis on improving/increasing steps to at least 6,000-10,000 steps per day. Increasing cardio and strength training exercises as tolerated to improve weight loss and work on building muscle mass. Patient is committed to smarter eating with calorie counting and mindful eating. Limiting processed foods and carbohydrates and increasing leafy greens and lean proteins as well as fruits into their diet. Patient was counseled on the importance of eating local, organic food when possible. Patient has been counseled regarding effects of GLP/GIP-1 agonists and other FDA approved weight loss medications with regards to a multifactorial approach of weight loss as mentioned above and that the medication alone will not be sufficient to meet patients goals. We discussed holistic medication approach with emphasis on lifestyle modification. Discussed obesity as it increases risk of diabetes, cardiovascular disease, and/or organ damage. We spent a lot of time discussing the relationship between food, exercise, sleep, mental health, and obesity. We discussed the importance of having SECAs done every visit and having accountability done during these visits. That the scale is done to monitor not only weight loss but the body composition during medication management and healthy lifestyle changes. We discussed that if the patient is unable at times to financially afford this scale that we would rather waive the fee and have the scale done than have the patient not have the scale obtained. #HTN- currently well controlled, followed by PCP. #AVR- s/p AVR 2010. On coumadin. Case discussed with collaborating physician Dennis Sol who reviewed the assessment and plan. Chart, medications, labs, vital signs reviewed. Dictation was accomplished with the use of [employer] voice recognition software, prone to medical misidentifications and grammatical errors. This is unintentional and the practitioner does try to identify and correct these, but some could still be present. Please do not hesitate to contact practitioner for clarification. All questions answered to patients satisfaction. Patient verbalized understanding of diagnosis and treatments explained. To call sooner prior to next visit it any questions/concerns arise. 09/01/2024 Morbid (severe) obesity due to excess calories (ICD-10 - E66.01) #Morbid obesity. 07/29/24: 215.8 pounds, BMI 36.8. She has been off of compounded semaglutide for 3 weeks. Unfortunately she did have to undergo a cardiac ablation this week. She is healing well and will have follow-up with cardiology on Saturday. Has not been cleared yet to resume exercise. She does report she received notification from [employer] that her appeal was approved for [email or web address] and would like prescription sent to pharmacy. Discussed healthy diet and hydration. Await cardiac clearance prior to resuming exercise regimen. Will follow-up in 4 weeks sooner with any concerns. 07/01/24: 211.3 pounds, BMI 36.0. She has done well on compounded semaglutide. Will continue 0.5 mg dose today. Will plan to submit Wegovy at the end of next week. Discussed proper use and demonstrated pen autoinjector. She will continue to work on increased protein, increased hydration and exercise. Follow-up in 4 weeks sooner with any concerns. 05/28/24: 215.9 lbs, BMI 36.8. Sema 0.25 mg She is doing well on compounded semaglutide. She has chosen to stay at the 0.25 mg dose however plans to increase next week to 0.5 mg. Weight is down 8 pounds. Fat mass is down 7 pounds. Discussed importance of increased hydration, increased exercise and regular protein intake. She will also continue SHILO injections every 2 weeks as well. Follow-up with me in 4 to 6 weeks sooner with any concerns. 05/14/24: Sema 0.25 mg, MICC 05/06/24: Sema 0.25 mg 04/29/24: Sema 0.25 mg, MICC 04/21/24: Sema 0.25 mg 04/14/24: Sema 0.25 mg, MICC 04/08/24: 223.9 pounds, BMI 38.1. New patient welcomed to the practice today Seca scale done and reviewed in detail with patient. Reviewed medical weight loss options in detail with patient including phentermine, Contrave, Wegovy, compounded semaglutide, Zepp bound, compounded tirzepatide, metformin, Topamax. She is most interested in Wegovy or compounded semaglutide. We reviewed risk benefits adverse effects of medication in detail. She will check with her insurance in regards to Wegovy coverage. We did discuss that [facility] sometimes will require 3 months of medical weight loss visits prior to coverage. Discussed compounded semaglutide program as an option here in the office which she would like to start today. Will get comprehensive labs and review at follow up visit. The patient will continue exercise regimen with an emphasis on improving/increasing steps to at least 6,000-10,000 steps per day. Increasing cardio and strength training exercises as tolerated to improve weight loss and work on building muscle mass. Patient is committed to smarter eating with calorie counting and mindful eating. Limiting processed foods and carbohydrates and increasing leafy greens and lean proteins as well as fruits into their diet. Patient was counseled on the importance of eating local, organic food when possible. Patient has been counseled regarding effects of GLP/GIP-1 agonists and other FDA approved weight loss medications with regards to a multifactorial approach of weight loss as mentioned above and that the medication alone will not be sufficient to meet patients goals. We discussed holistic medication approach with emphasis on lifestyle modification. Discussed obesity as it increases risk of diabetes, cardiovascular disease, and/or organ damage. We spent a lot of time discussing the relationship between food, exercise, sleep, mental health, and obesity. We discussed the importance of having SECAs done every visit and having accountability done during these visits. That the scale is done to monitor not only weight loss but the body composition during medication management and healthy lifestyle changes. We discussed that if the patient is unable at times to financially afford this scale that we would rather waive the fee and have the scale done than have the patient not have the scale obtained. #HTN- currently well controlled, followed by PCP. #AVR- s/p AVR 2010. On coumadin. Case discussed with collaborating physician Dennis Sol who reviewed the assessment and plan. Chart, medications, labs, vital signs reviewed. Dictation was accomplished with the use of [employer] voice recognition software, prone to medical misidentifications and grammatical errors. This is unintentional and the practitioner does try to identify and correct these, but some could still be present. Please do not hesitate to contact practitioner for clarification. All questions answered to patients satisfaction. Patient verbalized understanding of diagnosis and treatments explained. To call sooner prior to next visit it any questions/concerns arise. 09/01/2024 BMI 36.0-36.9,adult (ICD-10 - Z68.36) #Morbid obesity. 07/29/24: 215.8 pounds, BMI 36.8. She has been off of compounded semaglutide for 3 weeks. Unfortunately she did have to undergo a cardiac ablation this week. She is healing well and will have follow-up with cardiology on Saturday. Has not been cleared yet to resume exercise. She does report she received notification from [employer] that her appeal was approved for Wegovy and would like prescription sent to pharmacy. Discussed healthy diet and hydration. Await cardiac clearance prior to resuming exercise regimen. Will follow-up in 4 weeks sooner with any concerns. 07/01/24: 211.3 pounds, BMI 36.0. She has done well on compounded semaglutide. Will continue 0.5 mg dose today. Will plan to submit Wegovy at the end of next week. Discussed proper use and demonstrated pen autoinjector. She will continue to work on increased protein, increased hydration and exercise. Follow-up in 4 weeks sooner with any concerns. 05/28/24: 215.9 lbs, BMI 36.8. Sema 0.25 mg She is doing well on compounded semaglutide. She has chosen to stay at the 0.25 mg dose however plans to increase next week to 0.5 mg. Weight is down 8 pounds. Fat mass is down 7 pounds. Discussed importance of increased hydration, increased exercise and regular protein intake. She will also continue SHILO injections every 2 weeks as well. Follow-up with me in 4 to 6 weeks sooner with any concerns. 05/14/24: Sema 0.25 mg, MICC 05/06/24: Sema 0.25 mg 04/29/24: Sema 0.25 mg, MICC 04/21/24: Sema 0.25 mg 04/14/24: Sema 0.25 mg, MICC 04/08/24: 223.9 pounds, BMI 38.1. New patient welcomed to the practice today Seca scale done and reviewed in detail with patient. Reviewed medical weight loss options in detail with patient including phentermine, Contrave, Wegovy, compounded semaglutide, Zepp bound, compounded tirzepatide, metformin, Topamax. She is most interested in Wegovy or compounded semaglutide. We reviewed risk benefits adverse effects of medication in detail. She will check with her insurance in regards to Wegovy coverage. We did discuss that [facility] sometimes will require 3 months of medical weight loss visits prior to coverage. Discussed compounded semaglutide program as an option here in the office which she would like to start today. Will get comprehensive labs and review at follow up visit. The patient will continue exercise regimen with an emphasis on improving/increasing steps to at least 6,000-10,000 steps per day. Increasing cardio and strength training exercises as tolerated to improve weight loss and work on building muscle mass. Patient is committed to smarter eating with calorie counting and mindful eating. Limiting processed foods and carbohydrates and increasing leafy greens and lean proteins as well as fruits into their diet. Patient was counseled on the importance of eating local, organic food when possible. Patient has been counseled regarding effects of GLP/GIP-1 agonists and other FDA approved weight loss medications with regards to a multifactorial approach of weight loss as mentioned above and that the medication alone will not be sufficient to meet patients goals. We discussed holistic medication approach with emphasis on lifestyle modification. Discussed obesity as it increases risk of diabetes, cardiovascular disease, and/or organ damage. We spent a lot of time discussing the relationship between food, exercise, sleep, mental health, and obesity. We discussed the importance of having SECAs done every visit and having accountability done during these visits. That the scale is done to monitor not only weight loss but the body composition during medication management and healthy lifestyle changes. We discussed that if the patient is unable at times to financially afford this scale that we would rather waive the fee and have the scale done than have the patient not have the scale obtained. #HTN- currently well controlled, followed by PCP. #AVR- s/p AVR 2010. On coumadin. Case discussed with collaborating physician Dennis Sol who reviewed the assessment and plan. Chart, medications, labs, vital signs reviewed. Dictation was accomplished with the use of [employer] voice recognition software, prone to medical misidentifications and grammatical errors. This is unintentional and the practitioner does try to identify and correct these, but some could still be present. Please do not hesitate to contact practitioner for clarification. All questions answered to patients satisfaction. Patient verbalized understanding of diagnosis and treatments explained. To call sooner prior to next visit it any questions/concerns arise. 01/11/2025 Morbid (severe) obesity due to excess calories (ICD-10 - E66.01) #Morbid obesity. 01/11/25: 204.8 pounds, BMI 34.9. Patient was seen after 5-month hiatus. Unfortunately she had recurrent tachycardia and palpitations while on Wegovy. She did undergo cardiac ablation however had persistent symptoms. Has been off of Wegovy since and symptoms have improved. We discussed other medical weight loss options in detail however given side effect profile and her cardiac history I would not suggest Contrave, phentermine or Zepbound at this time. She plans to work on lifestyle modifications with consistent protein intake, hydration and regular exercise. Will follow-up with me in 1 month for repeat Seca scale. We did discuss option of more holistic approach with supplements which she declines at this time. Will follow-up again in 1 month sooner with any concerns. The patient will continue exercise regimen with an emphasis on improving/increasing steps to at least 6,000-10,000 steps per day. Increasing cardio and strength training exercises as tolerated to improve weight loss and work on building muscle mass. Patient is committed to smarter eating with calorie counting and mindful eating. Limiting processed foods and carbohydrates and increasing leafy greens and lean proteins as well as fruits into their diet. Patient was counseled on the importance of eating local, organic food when possible. Patient has been counseled regarding effects of GLP/GIP-1 agonists and other FDA approved weight loss medications with regards to a multifactorial approach of weight loss as mentioned above and that the medication alone will not be sufficient to meet patients goals. We discussed holistic medication approach with emphasis on lifestyle modification. Discussed obesity as it increases risk of diabetes, cardiovascular disease, and/or organ damage. We spent a lot of time discussing the relationship between food, exercise, sleep, mental health, and obesity. We discussed the importance of having SECAs done every visit and having accountability done during these visits. That the scale is done to monitor not only weight loss but the body composition during medication management and healthy lifestyle changes. We discussed that if the patient is unable at times to financially afford this scale that we would rather waive the fee and have the scale done than have the patient not have the scale obtained. #HTN- currently well controlled, followed by PCP. #AVR- s/p AVR 2010. On coumadin. Case discussed with collaborating physician Tu Sol who reviewed the assessment and plan. Chart, medications, labs, vital signs reviewed. Dictation was accomplished with the use of [employer] voice recognition software, prone to medical misidentifications and grammatical errors. This is unintentional and the practitioner does try to identify and correct these, but some could still be present. Please do not hesitate to contact practitioner for clarification. All questions answered to patients satisfaction. Patient verbalized understanding of diagnosis and treatments explained. To call sooner prior to next visit it any questions/concerns arise. 01/11/2025 BMI 35.0-35.9,adult (ICD-10 - Z68.35) #Morbid obesity. 01/11/25: 204.8 pounds, BMI 34.9. Patient was seen after 5-month hiatus. Unfortunately she had recurrent tachycardia and palpitations while on Wegovy. She did undergo cardiac ablation however had persistent symptoms. Has been off of Wegovy since and symptoms have improved. We discussed other medical weight loss options in detail however given side effect profile and her cardiac history I would not suggest Contrave, phentermine or Zepbound at this time. She plans to work on lifestyle modifications with consistent protein intake, hydration and regular exercise. Will follow-up with me in 1 month for repeat Seca scale. We did discuss option of more holistic approach with supplements which she declines at this time. Will follow-up again in 1 month sooner with any concerns. The patient will continue exercise regimen with an emphasis on improving/increasing steps to at least 6,000-10,000 steps per day. Increasing cardio and strength training exercises as tolerated to improve weight loss and work on building muscle mass. Patient is committed to smarter eating with calorie counting and mindful eating. Limiting processed foods and carbohydrates and increasing leafy greens and lean proteins as well as fruits into their diet. Patient was counseled on the importance of eating local, organic food when possible. Patient has been counseled regarding effects of GLP/GIP-1 agonists and other FDA approved weight loss medications with regards to a multifactorial approach of weight loss as mentioned above and that the medication alone will not be sufficient to meet patients goals. We discussed holistic medication approach with emphasis on lifestyle modification. Discussed obesity as it increases risk of diabetes, cardiovascular disease, and/or organ damage. We spent a lot of time discussing the relationship between food, exercise, sleep, mental health, and obesity. We discussed the importance of having SECAs done every visit and having accountability done during these visits. That the scale is done to monitor not only weight loss but the body composition during medication management and healthy lifestyle changes. We discussed that if the patient is unable at times to financially afford this scale that we would rather waive the fee and have the scale done than have the patient not have the scale obtained. #HTN- currently well controlled, followed by PCP. #AVR- s/p AVR 2010. On coumadin. Case discussed with collaborating physician Tu Sol who reviewed the assessment and plan. Chart, medications, labs, vital signs reviewed. Dictation was accomplished with the use of [employer] voice recognition software, prone to medical misidentifications and grammatical errors. This is unintentional and the practitioner does try to identify and correct these, but some could still be present. Please do not hesitate to contact practitioner for clarification. All questions answered to patients satisfaction. Patient verbalized understanding of diagnosis and treatments explained. To call sooner prior to next visit it any questions/concerns arise. 02/08/2025 Morbid (severe) obesity due to excess calories (ICD-10 - E66.01) #Morbid obesity. 01/11/25: 204.8 pounds, BMI 34.9. Patient was seen after 5-month hiatus. Unfortunately she had recurrent tachycardia and palpitations while on Wegovy. She did undergo cardiac ablation however had persistent symptoms. Has been off of Wegovy since and symptoms have improved. We discussed other medical weight loss options in detail however given side effect profile and her cardiac history I would not suggest Contrave, phentermine or Zepbound at this time. She plans to work on lifestyle modifications with consistent protein intake, hydration and regular exercise. Will follow-up with me in 1 month for repeat Seca scale. We did discuss option of more holistic approach with supplements which she declines at this time. Will follow-up again in 1 month sooner with any concerns. The patient will continue exercise regimen with an emphasis on improving/increasing steps to at least 6,000-10,000 steps per day. Increasing cardio and strength training exercises as tolerated to improve weight loss and work on building muscle mass. Patient is committed to smarter eating with calorie counting and mindful eating. Limiting processed foods and carbohydrates and increasing leafy greens and lean proteins as well as fruits into their diet. Patient was counseled on the importance of eating local, organic food when possible. Patient has been counseled regarding effects of GLP/GIP-1 agonists and other FDA approved weight loss medications with regards to a multifactorial approach of weight loss as mentioned above and that the medication alone will not be sufficient to meet patients goals. We discussed holistic medication approach with emphasis on lifestyle modification. Discussed obesity as it increases risk of diabetes, cardiovascular disease, and/or organ damage. We spent a lot of time discussing the relationship between food, exercise, sleep, mental health, and obesity. We discussed the importance of having SECAs done every visit and having accountability done during these visits. That the scale is done to monitor not only weight loss but the body composition during medication management and healthy lifestyle changes. We discussed that if the patient is unable at times to financially afford this scale that we would rather waive the fee and have the scale done than have the patient not have the scale obtained. #HTN- currently well controlled, followed by PCP. #AVR- s/p AVR 2010. On coumadin. Case discussed with collaborating physician Tu Sol who reviewed the assessment and plan. Chart, medications, labs, vital signs reviewed. Dictation was accomplished with the use of [employer] voice recognition software, prone to medical misidentifications and grammatical errors. This is unintentional and the practitioner does try to identify and correct these, but some could still be present. Please do not hesitate to contact practitioner for clarification. All questions answered to patients satisfaction. Patient verbalized understanding of diagnosis and treatments explained. To call sooner prior to next visit it any questions/concerns arise. 02/08/2025 BMI 35.0-35.9,adult (ICD-10 - Z68.35) #Morbid obesity. 01/11/25: 204.8 pounds, BMI 34.9. Patient was seen after 5-month hiatus. Unfortunately she had recurrent tachycardia and palpitations while on Wegovy. She did undergo cardiac ablation however had persistent symptoms. Has been off of Wegovy since and symptoms have improved. We discussed other medical weight loss options in detail however given side effect profile and her cardiac history I would not suggest Contrave, phentermine or Zepbound at this time. She plans to work on lifestyle modifications with consistent protein intake, hydration and regular exercise. Will follow-up with me in 1 month for repeat Seca scale. We did discuss option of more holistic approach with supplements which she declines at this time. Will follow-up again in 1 month sooner with any concerns. The patient will continue exercise regimen with an emphasis on improving/increasing steps to at least 6,000-10,000 steps per day. Increasing cardio and strength training exercises as tolerated to improve weight loss and work on building muscle mass. Patient is committed to smarter eating with calorie counting and mindful eating. Limiting processed foods and carbohydrates and increasing leafy greens and lean proteins as well as fruits into their diet. Patient was counseled on the importance of eating local, organic food when possible. Patient has been counseled regarding effects of GLP/GIP-1 agonists and other FDA approved weight loss medications with regards to a multifactorial approach of weight loss as mentioned above and that the medication alone will not be sufficient to meet patients goals. We discussed holistic medication approach with emphasis on lifestyle modification. Discussed obesity as it increases risk of diabetes, cardiovascular disease, and/or organ damage. We spent a lot of time discussing the relationship between food, exercise, sleep, mental health, and obesity. We discussed the importance of having SECAs done every visit and having accountability done during these visits. That the scale is done to monitor not only weight loss but the body composition during medication management and healthy lifestyle changes. We discussed that if the patient is unable at times to financially afford this scale that we would rather waive the fee and have the scale done than have the patient not have the scale obtained. #HTN- currently well controlled, followed by PCP. #AVR- s/p AVR 2010. On coumadin. Case discussed with collaborating physician Tu Sol who reviewed the assessment and plan. Chart, medications, labs, vital signs reviewed. Dictation was accomplished with the use of [employer] voice recognition software, prone to medical misidentifications and grammatical errors. This is unintentional and the practitioner does try to identify and correct these, but some could still be present. Please do not hesitate to contact practitioner for clarification. All questions answered to patients satisfaction. Patient verbalized understanding of diagnosis and treatments explained. To call sooner prior to next visit it any questions/concerns arise. 02/08/2025 Essential hypertension (ICD-10 - I10) #Morbid obesity. 01/11/25: 204.8 pounds, BMI 34.9. Patient was seen after 5-month hiatus. Unfortunately she had recurrent tachycardia and palpitations while on Wegovy. She did undergo cardiac ablation however had persistent symptoms. Has been off of Wegovy since and symptoms have improved. We discussed other medical weight loss options in detail however given side effect profile and her cardiac history I would not suggest Contrave, phentermine or Zepbound at this time. She plans to work on lifestyle modifications with consistent protein intake, hydration and regular exercise. Will follow-up with me in 1 month for repeat Seca scale. We did discuss option of more holistic approach with supplements which she declines at this time. Will follow-up again in 1 month sooner with any concerns. The patient will continue exercise regimen with an emphasis on improving/increasing steps to at least 6,000-10,000 steps per day. Increasing cardio and strength training exercises as tolerated to improve weight loss and work on building muscle mass. Patient is committed to smarter eating with calorie counting and mindful eating. Limiting processed foods and carbohydrates and increasing leafy greens and lean proteins as well as fruits into their diet. Patient was counseled on the importance of eating local, organic food when possible. Patient has been counseled regarding effects of GLP/GIP-1 agonists and other FDA approved weight loss medications with regards to a multifactorial approach of weight loss as mentioned above and that the medication alone will not be sufficient to meet patients goals. We discussed holistic medication approach with emphasis on lifestyle modification. Discussed obesity as it increases risk of diabetes, cardiovascular disease, and/or organ damage. We spent a lot of time discussing the relationship between food, exercise, sleep, mental health, and obesity. We discussed the importance of having SECAs done every visit and having accountability done during these visits. That the scale is done to monitor not only weight loss but the body composition during medication management and healthy lifestyle changes. We discussed that if the patient is unable at times to financially afford this scale that we would rather waive the fee and have the scale done than have the patient not have the scale obtained. #HTN- currently well controlled, followed by PCP. #AVR- s/p AVR 2010. On coumadin. Case discussed with collaborating physician Tu Sol who reviewed the assessment and plan. Chart, medications, labs, vital signs reviewed. Dictation was accomplished with the use of [employer] voice recognition software, prone to medical misidentifications and grammatical errors. This is unintentional and the practitioner does try to identify and correct these, but some could still be present. Please do not hesitate to contact practitioner for clarification. All questions answered to patients satisfaction. Patient verbalized understanding of diagnosis and treatments explained. To call sooner prior to next visit it any questions/concerns arise. 01/11/2025 Essential hypertension (ICD-10 - I10) #Morbid obesity. 01/11/25: 204.8 pounds, BMI 34.9. Patient was seen after 5-month hiatus. Unfortunately she had recurrent tachycardia and palpitations while on Wegovy. She did undergo cardiac ablation however had persistent symptoms. Has been off of Wegovy since and symptoms have improved. We discussed other medical weight loss options in detail however given side effect profile and her cardiac history I would not suggest Contrave, phentermine or Zepbound at this time. She plans to work on lifestyle modifications with consistent protein intake, hydration and regular exercise. Will follow-up with me in 1 month for repeat Seca scale. We did discuss option of more holistic approach with supplements which she declines at this time. Will follow-up again in 1 month sooner with any concerns. The patient will continue exercise regimen with an emphasis on improving/increasing steps to at least 6,000-10,000 steps per day. Increasing cardio and strength training exercises as tolerated to improve weight loss and work on building muscle mass. Patient is committed to smarter eating with calorie counting and mindful eating. Limiting processed foods and carbohydrates and increasing leafy greens and lean proteins as well as fruits into their diet. Patient was counseled on the importance of eating local, organic food when possible. Patient has been counseled regarding effects of GLP/GIP-1 agonists and other FDA approved weight loss medications with regards to a multifactorial approach of weight loss as mentioned above and that the medication alone will not be sufficient to meet patients goals. We discussed holistic medication approach with emphasis on lifestyle modification. Discussed obesity as it increases risk of diabetes, cardiovascular disease, and/or organ damage. We spent a lot of time discussing the relationship between food, exercise, sleep, mental health, and obesity. We discussed the importance of having SECAs done every visit and having accountability done during these visits. That the scale is done to monitor not only weight loss but the body composition during medication management and healthy lifestyle changes. We discussed that if the patient is unable at times to financially afford this scale that we would rather waive the fee and have the scale done than have the patient not have the scale obtained. #HTN- currently well controlled, followed by PCP. #AVR- s/p AVR 2010. On coumadin. Case discussed with collaborating physician Tu Sol who reviewed the assessment and plan. Chart, medications, labs, vital signs reviewed. Dictation was accomplished with the use of [employer] voice recognition software, prone to medical misidentifications and grammatical errors. This is unintentional and the practitioner does try to identify and correct these, but some could still be present. Please do not hesitate to contact practitioner for clarification. All questions answered to patients satisfaction. Patient verbalized understanding of diagnosis and treatments explained. To call sooner prior to next visit it any questions/concerns arise. 09/01/2024 Essential hypertension (ICD-10 - I10) #Morbid obesity. 07/29/24: 215.8 pounds, BMI 36.8. She has been off of compounded semaglutide for 3 weeks. Unfortunately she did have to undergo a cardiac ablation this week. She is healing well and will have follow-up with cardiology on Saturday. Has not been cleared yet to resume exercise. She does report she received notification from [employer] that her appeal was approved for Wegovy and would like prescription sent to pharmacy. Discussed healthy diet and hydration. Await cardiac clearance prior to resuming exercise regimen. Will follow-up in 4 weeks sooner with any concerns. 07/01/24: 211.3 pounds, BMI 36.0. She has done well on compounded semaglutide. Will continue 0.5 mg dose today. Will plan to submit Wegovy at the end of next week. Discussed proper use and demonstrated pen autoinjector. She will continue to work on increased protein, increased hydration and exercise. Follow-up in 4 weeks sooner with any concerns. 05/28/24: 215.9 lbs, BMI 36.8. Sema 0.25 mg She is doing well on compounded semaglutide. She has chosen to stay at the 0.25 mg dose however plans to increase next week to 0.5 mg. Weight is down 8 pounds. Fat mass is down 7 pounds. Discussed importance of increased hydration, increased exercise and regular protein intake. She will also continue SHILO injections every 2 weeks as well. Follow-up with me in 4 to 6 weeks sooner with any concerns. 05/14/24: Sema 0.25 mg, MICC 05/06/24: Sema 0.25 mg 04/29/24: Sema 0.25 mg, MICC 04/21/24: Sema 0.25 mg 04/14/24: Sema 0.25 mg, MICC 04/08/24: 223.9 pounds, BMI 38.1. New patient welcomed to the practice today Seca scale done and reviewed in detail with patient. Reviewed medical weight loss options in detail with patient including phentermine, Contrave, Wegovy, compounded semaglutide, Zepp bound, compounded tirzepatide, metformin, Topamax. She is most interested in Wegovy or compounded semaglutide. We reviewed risk benefits adverse effects of medication in detail. She will check with her insurance in regards to Wegovy coverage. We did discuss that [facility] sometimes will require 3 months of medical weight loss visits prior to coverage. Discussed compounded semaglutide program as an option here in the office which she would like to start today. Will get comprehensive labs and review at follow up visit. The patient will continue exercise regimen with an emphasis on improving/increasing steps to at least 6,000-10,000 steps per day. Increasing cardio and strength training exercises as tolerated to improve weight loss and work on building muscle mass. Patient is committed to smarter eating with calorie counting and mindful eating. Limiting processed foods and carbohydrates and increasing leafy greens and lean proteins as well as fruits into their diet. Patient was counseled on the importance of eating local, organic food when possible. Patient has been counseled regarding effects of GLP/GIP-1 agonists and other FDA approved weight loss medications with regards to a multifactorial approach of weight loss as mentioned above and that the medication alone will not be sufficient to meet patients goals. We discussed holistic medication approach with emphasis on lifestyle modification. Discussed obesity as it increases risk of diabetes, cardiovascular disease, and/or organ damage. We spent a lot of time discussing the relationship between food, exercise, sleep, mental health, and obesity. We discussed the importance of having SECAs done every visit and having accountability done during these visits. That the scale is done to monitor not only weight loss but the body composition during medication management and healthy lifestyle changes. We discussed that if the patient is unable at times to financially afford this scale that we would rather waive the fee and have the scale done than have the patient not have the scale obtained. #HTN- currently well controlled, followed by PCP. #AVR- s/p AVR 2010. On coumadin. Case discussed with collaborating physician Dennis Sol who reviewed the assessment and plan. Chart, medications, labs, vital signs reviewed. Dictation was accomplished with the use of [employer] voice recognition software, prone to medical misidentifications and grammatical errors. This is unintentional and the practitioner does try to identify and correct these, but some could still be present. Please do not hesitate to contact practitioner for clarification. All questions answered to patients satisfaction. Patient verbalized understanding of diagnosis and treatments explained. To call sooner prior to next visit it any questions/concerns arise. 07/29/2024 Essential hypertension (ICD-10 - I10) #Morbid obesity. 07/29/24: 215.8 pounds, BMI 36.8. She has been off of compounded semaglutide for 3 weeks. Unfortunately she did have to undergo a cardiac ablation this week. She is healing well and will have follow-up with cardiology on Saturday. Has not been cleared yet to resume exercise. She does report she received notification from [employer] that her appeal was approved for Wegovy and would like prescription sent to pharmacy. Discussed healthy diet and hydration. Await cardiac clearance prior to resuming exercise regimen. Will follow-up in 4 weeks sooner with any concerns. 07/01/24: 211.3 pounds, BMI 36.0. She has done well on compounded semaglutide. Will continue 0.5 mg dose today. Will plan to submit Wegovy at the end of next week. Discussed proper use and demonstrated pen autoinjector. She will continue to work on increased protein, increased hydration and exercise. Follow-up in 4 weeks sooner with any concerns. 05/28/24: 215.9 lbs, BMI 36.8. Sema 0.25 mg She is doing well on compounded semaglutide. She has chosen to stay at the 0.25 mg dose however plans to increase next week to 0.5 mg. Weight is down 8 pounds. Fat mass is down 7 pounds. Discussed importance of increased hydration, increased exercise and regular protein intake. She will also continue SHILO injections every 2 weeks as well. Follow-up with me in 4 to 6 weeks sooner with any concerns. 05/14/24: Sema 0.25 mg, MICC 05/06/24: Sema 0.25 mg 04/29/24: Sema 0.25 mg, MICC 04/21/24: Sema 0.25 mg 04/14/24: Sema 0.25 mg, MICC 04/08/24: 223.9 pounds, BMI 38.1. New patient welcomed to the practice today Seca scale done and reviewed in detail with patient. Reviewed medical weight loss options in detail with patient including phentermine, Contrave, Wegovy, compounded semaglutide, Zepp bound, compounded tirzepatide, metformin, Topamax. She is most interested in Wegovy or compounded semaglutide. We reviewed risk benefits adverse effects of medication in detail. She will check with her insurance in regards to Wegovy coverage. We did discuss that [facility] sometimes will require 3 months of medical weight loss visits prior to coverage. Discussed compounded semaglutide program as an option here in the office which she would like to start today. Will get comprehensive labs and review at follow up visit. The patient will continue exercise regimen with an emphasis on improving/increasing steps to at least 6,000-10,000 steps per day. Increasing cardio and strength training exercises as tolerated to improve weight loss and work on building muscle mass. Patient is committed to smarter eating with calorie counting and mindful eating. Limiting processed foods and carbohydrates and increasing leafy greens and lean proteins as well as fruits into their diet. Patient was counseled on the importance of eating local, organic food when possible. Patient has been counseled regarding effects of GLP/GIP-1 agonists and other FDA approved weight loss medications with regards to a multifactorial approach of weight loss as mentioned above and that the medication alone will not be sufficient to meet patients goals. We discussed holistic medication approach with emphasis on lifestyle modification. Discussed obesity as it increases risk of diabetes, cardiovascular disease, and/or organ damage. We spent a lot of time discussing the relationship between food, exercise, sleep, mental health, and obesity. We discussed the importance of having SECAs done every visit and having accountability done during these visits. That the scale is done to monitor not only weight loss but the body composition during medication management and healthy lifestyle changes. We discussed that if the patient is unable at times to financially afford this scale that we would rather waive the fee and have the scale done than have the patient not have the scale obtained. #HTN- currently well controlled, followed by PCP. #AVR- s/p AVR 2010. On coumadin. Case discussed with collaborating physician Dennis Sol who reviewed the assessment and plan. Chart, medications, labs, vital signs reviewed. Dictation was accomplished with the use of [employer] voice recognition software, prone to medical misidentifications and grammatical errors. This is unintentional and the practitioner does try to identify and correct these, but some could still be present. Please do not hesitate to contact practitioner for clarification. All questions answered to patients satisfaction. Patient verbalized understanding of diagnosis and treatments explained. To call sooner prior to next visit it any questions/concerns arise. 07/01/2024 Essential hypertension (ICD-10 - I10) #Morbid obesity. 07/01/24: 211.3 pounds, BMI 36.0. She has done well on compounded semaglutide. Will continue 0.5 mg dose today. Will plan to submit Wegovy at the end of next week. Discussed proper use and demonstrated pen autoinjector. She will continue to work on increased protein, increased hydration and exercise. Follow-up in 4 weeks sooner with any concerns. 05/28/24: 215.9 lbs, BMI 36.8. Sema 0.25 mg She is doing well on compounded semaglutide. She has chosen to stay at the 0.25 mg dose however plans to increase next week to 0.5 mg. Weight is down 8 pounds. Fat mass is down 7 pounds. Discussed importance of increased hydration, increased exercise and regular protein intake. She will also continue SHILO injections every 2 weeks as well. Follow-up with me in 4 to 6 weeks sooner with any concerns. 05/14/24: Sema 0.25 mg, MICC 05/06/24: Sema 0.25 mg 04/29/24: Sema 0.25 mg, MICC 04/21/24: Sema 0.25 mg 04/14/24: Sema 0.25 mg, MICC 04/08/24: 223.9 pounds, BMI 38.1. New patient welcomed to the practice today Seca scale done and reviewed in detail with patient. Reviewed medical weight loss options in detail with patient including phentermine, Contrave, Wegovy, compounded semaglutide, Zepp bound, compounded tirzepatide, metformin, Topamax. She is most interested in Wegovy or compounded semaglutide. We reviewed risk benefits adverse effects of medication in detail. She will check with her insurance in regards to [employer] coverage. We did discuss that [employer] sometimes will require 3 months of medical weight loss visits prior to coverage. Discussed compounded semaglutide program as an option here in the office which she would like to start today. Will get comprehensive labs and review at follow up visit. The patient will continue exercise regimen with an emphasis on improving/increasing steps to at least 6,000-10,000 steps per day. Increasing cardio and strength training exercises as tolerated to improve weight loss and work on building muscle mass. Patient is committed to smarter eating with calorie counting and mindful eating. Limiting processed foods and carbohydrates and increasing leafy greens and lean proteins as well as fruits into their diet. Patient was counseled on the importance of eating local, organic food when possible. Patient has been counseled regarding effects of GLP/GIP-1 agonists and other FDA approved weight loss medications with regards to a multifactorial approach of weight loss as mentioned above and that the medication alone will not be sufficient to meet patients goals. We discussed holistic medication approach with emphasis on lifestyle modification. Discussed obesity as it increases risk of diabetes, cardiovascular disease, and/or organ damage. We spent a lot of time discussing the relationship between food, exercise, sleep, mental health, and obesity. We discussed the importance of having SECAs done every visit and having accountability done during these visits. That the scale is done to monitor not only weight loss but the body composition during medication management and healthy lifestyle changes. We discussed that if the patient is unable at times to financially afford this scale that we would rather waive the fee and have the scale done than have the patient not have the scale obtained. #HTN- currently well controlled, followed by PCP. #AVR- s/p AVR 2010. On coumadin. Case discussed with collaborating physician Dennis Sol who reviewed the assessment and plan. Chart, medications, labs, vital signs reviewed. Dictation was accomplished with the use of [employer] voice recognition software, prone to medical misidentifications and grammatical errors. This is unintentional and the practitioner does try to identify and correct these, but some could still be present. Please do not hesitate to contact practitioner for clarification. All questions answered to patients satisfaction. Patient verbalized understanding of diagnosis and treatments explained. To call sooner prior to next visit it any questions/concerns arise. 05/28/2024 Essential hypertension (ICD-10 - I10) #Morbid obesity. 05/28/24: 215.9 lbs, BMI 36.8. Sema 0.25 mg She is doing well on compounded semaglutide. She has chosen to stay at the 0.25 mg dose however plans to increase next week to 0.5 mg. Weight is down 8 pounds. Fat mass is down 7 pounds. Discussed importance of increased hydration, increased exercise and regular protein intake. She will also continue SHILO injections every 2 weeks as well. Follow-up with me in 4 to 6 weeks sooner with any concerns. 05/14/24: Sema 0.25 mg, MICC 05/06/24: Sema 0.25 mg 04/29/24: Sema 0.25 mg, MICC 04/21/24: Sema 0.25 mg 04/14/24: Sema 0.25 mg, MICC 04/08/24: 223.9 pounds, BMI 38.1. New patient welcomed to the practice today Seca scale done and reviewed in detail with patient. Reviewed medical weight loss options in detail with patient including phentermine, Contrave, Wegovy, compounded semaglutide, Zepp bound, compounded tirzepatide, metformin, Topamax. She is most interested in Wegovy or compounded semaglutide. We reviewed risk benefits adverse effects of medication in detail. She will check with her insurance in regards to Wegovy coverage. We did discuss that [facility] sometimes will require 3 months of medical weight loss visits prior to coverage. Discussed compounded semaglutide program as an option here in the office which she would like to start today. Will get comprehensive labs and review at follow up visit. The patient will continue exercise regimen with an emphasis on improving/increasing steps to at least 6,000-10,000 steps per day. Increasing cardio and strength training exercises as tolerated to improve weight loss and work on building muscle mass. Patient is committed to smarter eating with calorie counting and mindful eating. Limiting processed foods and carbohydrates and increasing leafy greens and lean proteins as well as fruits into their diet. Patient was counseled on the importance of eating local, organic food when possible. Patient has been counseled regarding effects of GLP/GIP-1 agonists and other FDA approved weight loss medications with regards to a multifactorial approach of weight loss as mentioned above and that the medication alone will not be sufficient to meet patients goals. We discussed holistic medication approach with emphasis on lifestyle modification. Discussed obesity as it increases risk of diabetes, cardiovascular disease, and/or organ damage. We spent a lot of time discussing the relationship between food, exercise, sleep, mental health, and obesity. We discussed the importance of having SECAs done every visit and having accountability done during these visits. That the scale is done to monitor not only weight loss but the body composition during medication management and healthy lifestyle changes. We discussed that if the patient is unable at times to financially afford this scale that we would rather waive the fee and have the scale done than have the patient not have the scale obtained. #HTN- currently well controlled, followed by PCP. #AVR- s/p AVR 2010. On coumadin. Case discussed with collaborating physician Dennis Sol who reviewed the assessment and plan. Chart, medications, labs, vital signs reviewed. Dictation was accomplished with the use of [employer] voice recognition software, prone to medical misidentifications and grammatical errors. This is unintentional and the practitioner does try to identify and correct these, but some could still be present. Please do not hesitate to contact practitioner for clarification. All questions answered to patients satisfaction. Patient verbalized understanding of diagnosis and treatments explained. To call sooner prior to next visit it any questions/concerns arise. 04/08/2024 Essential hypertension (ICD-10 - I10) #Morbid obesity. 223.9 pounds, BMI 38.1. New patient welcomed to the practice today Seca scale done and reviewed in detail with patient. Reviewed medical weight loss options in detail with patient including phentermine, Contrave, Wegovy, compounded semaglutide, Zepp bound, compounded tirzepatide, metformin, Topamax. She is most interested in Wegovy or compounded semaglutide. We reviewed risk benefits adverse effects of medication in detail. She will check with her insurance in regards to Wegovy coverage. We did discuss that [facility] sometimes will require 3 months of medical weight loss visits prior to coverage. Discussed compounded semaglutide program as an option here in the office which she would like to start today. Will get comprehensive labs and review at follow up visit. Patient will be started on Semaglutide compounded per our office protocol. They will start on 0.25 mg once weekly for weeks 1-4. They will follow up with me in 4 weeks at which time a repeat SECA scale will be reviewed. If Semaglutide has been tolerated well, the dose will increase to 0.5 mg once weekly for weeks 5-8. Follow up with the provider every 4 weeks with repeat SECA scale is required. If tolerated, dose will be increased to 1 mg after 8 weeks for weeks 9-12. Prior authorization for Wegovy will be started between weeks 11-13 and can take up to 4 weeks to complete. Out of pocket cost was reviewed with patient and escalating cost with escalating dose was reviewed. Discussed importance of supplementation with probiotics, B complex vitamins. We also reviewed lab monitoring routinely throughout. Discussed importance of protein intake, water intake, regular exercise and good sleep habits. The patient will continue exercise regimen with an emphasis on improving/increasing steps to at least 6,000-10,000 steps per day. Increasing cardio and strength training exercises as tolerated to improve weight loss and work on building muscle mass. Patient is committed to smarter eating with calorie counting and mindful eating. Limiting processed foods and carbohydrates and increasing leafy greens and lean proteins as well as fruits into their diet. Patient was counseled on the importance of eating local, organic food when possible. Patient has been counseled regarding effects of GLP/GIP-1 agonists and other FDA approved weight loss medications with regards to a multifactorial approach of weight loss as mentioned above and that the medication alone will not be sufficient to meet patients goals. We discussed holistic medication approach with emphasis on lifestyle modification. Discussed obesity as it increases risk of diabetes, cardiovascular disease, and/or organ damage. We spent a lot of time discussing the relationship between food, exercise, sleep, mental health, and obesity. We discussed the importance of having SECAs done every visit and having accountability done during these visits. That the scale is done to monitor not only weight loss but the body composition during medication management and healthy lifestyle changes. We discussed that if the patient is unable at times to financially afford this scale that we would rather waive the fee and have the scale done than have the patient not have the scale obtained. #HTN- currently well controlled, followed by PCP. #AVR- s/p AVR 2010. On coumadin. Weight Consult Plan: Patient has been found to be obese with a BMI of 38.1. Patient has class 2 obesity. Patient was reassured and welcomed to the practice. We discussed that we stress a hollistic medical approach with emphasis on lifestyle modification. Patient was informed that a healthy lifestyle with exercise and good eating habits can help reduce his risk of medical complications. He is explained that obesity increases his risk of diabetes, cardiovascular disease, or organ damage. We spent a lot of time discussing the relationship between food, exercise, sleep, mental health and obesity. Patient was counseled on the importance EATING local, organic food when possible. Patient was educated on clean 15 and dirty dozen. I provided information about reading books called The Food Rules by Geovani Kiran and Eat Fat Get Lean by Dr Tai Sanchez. Self education is important in the journey for weight management. Patient was offered diagnostic testing. We want to measure visceral adiposity, advanced body composition, adverse lipids, fatty acid balance, risk for heart disease and atherosclerosis, markers of inflammation and genetic susceptibility. Patient was counseled on weight management and was advised to lose weight using B. Lifestyle management which includes several strategies as below 1. Eat a low carbohydrate good fat good protein diet. Eliminate refined carbohydrates from the diet. Continue blood sugar and sugared beverages. Eat local organic when possible. Cook your own meals. Read food labels. None about healthy snacks. Portion control and food with low glycemic index 2. Exercise regularly. Try to get at least 6000 steps a day. Use a predominant to track activity level. Consider using apps like [employer], [employer], lose it, stick as needed for self-monitoring and weight management. Consider group exercises. Consider hiring a household personal assistant. Regular exercise is johnson to sustainable health and prevents as a buffer against weight regain 3. Sleep is most important for healing. Tried to sleep at least 8 hours a night. A good quality sleep needs a sleep ritual with ideal room temperature of around 68. It might help to take a shower and have no electronics in the room and sleep in a very dark room without artificial light. Start her sleep routine and get up early in the morning and go to bed on time 4. Make a social connection. Surround yourself with positive people with positive energy. Connect with friends and family. 5. Get into the habit of meditating and mindfulness while doing everything. 6. Go outside and connect with nature. C. Prescription medications Patient was educated on the use of prescription medications for medical weight loss. This is a growing list and includes phentermine, Topamax,Qsymia, contrave, belviq and saxenda. All prescription medications could have side effects including but not limited to kidney stones, seizure disorder cardiac arrhythmias heart attack pancreatitis etc. etc.. Patient was encouraged to read the prescription insert and have coaching with their pharmacist and make an informed decision about taking medication and know that these medications are being prescribed with good intentions and we do not know how a patient would react to her medication. Sudden medications are FDA approved for weight loss and there is also off label use depending on patient's inability to afford medications in an attempt to lose weight D. Behavioral counseling was done to establish a relationship between food and an mood. Patient was provided information about local counseling and psychiatry and Dr Ortez at [facility] We would like to cover regular topics and build on low glycemic eating exercise mindful eating, using yoga and meditation along with deep breathing and connecting with friends and family. E. MASS PAT reviewed, Patient's current medications were reviewed and opinion was given on medication that can cause weight gain and can be substituted F. Patient was assessed for risk with obesity including and not limiting to atherosclerosis heart disease stroke kidney disease, restrictive lung disease, irritable bowel syndrome and overall mortality. Risk of developing prediabetes diabetes and metabolic syndrome was discussed G. Therapeutic plan: We have decided to make therapeutic plan which would include choosing wisely on calories restricting portion getting active, tracking weight, getting good quality sleep and working on time management H. Patient will follow up in (4) weeks for weight management Total time spent today was 60 minutes of which greater than 50% was spent on coordinating and counseling Case discussed with collaborating physician Dennis Sol who reviewed the assessment and plan. Chart, medications, labs, vital signs reviewed. Dictation was accomplished with the use of [employer] voice recognition software, prone to medical misidentifications and grammatical errors. This is unintentional and the practitioner does try to identify and correct these, but some could still be present. Please do not hesitate to contact practitioner for clarification. All questions answered to patients satisfaction. Patient verbalized understanding of diagnosis and treatments explained. To call sooner prior to next visit it any questions/concerns arise. 04/08/2024 Aortic valve replaced (ICD-10 - Z95.2) #Morbid obesity. 223.9 pounds, BMI 38.1. New patient welcomed to the practice today Seca scale done and reviewed in detail with patient. Reviewed medical weight loss options in detail with patient including phentermine, Contrave, Wegovy, compounded semaglutide, Zepp bound, compounded tirzepatide, metformin, Topamax. She is most interested in Wegovy or compounded semaglutide. We reviewed risk benefits adverse effects of medication in detail. She will check with her insurance in regards to Wegovy coverage. We did discuss that [facility] sometimes will require 3 months of medical weight loss visits prior to coverage. Discussed compounded semaglutide program as an option here in the office which she would like to start today. Will get comprehensive labs and review at follow up visit. Patient will be started on Semaglutide compounded per our office protocol. They will start on 0.25 mg once weekly for weeks 1-4. They will follow up with me in 4 weeks at which time a repeat SECA scale will be reviewed. If Semaglutide has been tolerated well, the dose will increase to 0.5 mg once weekly for weeks 5-8. Follow up with the provider every 4 weeks with repeat SECA scale is required. If tolerated, dose will be increased to 1 mg after 8 weeks for weeks 9-12. Prior authorization for Wegovy will be started between weeks 11-13 and can take up to 4 weeks to complete. Out of pocket cost was reviewed with patient and escalating cost with escalating dose was reviewed. Discussed importance of supplementation with probiotics, B complex vitamins. We also reviewed lab monitoring routinely throughout. Discussed importance of protein intake, water intake, regular exercise and good sleep habits. The patient will continue exercise regimen with an emphasis on improving/increasing steps to at least 6,000-10,000 steps per day. Increasing cardio and strength training exercises as tolerated to improve weight loss and work on building muscle mass. Patient is committed to smarter eating with calorie counting and mindful eating. Limiting processed foods and carbohydrates and increasing leafy greens and lean proteins as well as fruits into their diet. Patient was counseled on the importance of eating local, organic food when possible. Patient has been counseled regarding effects of GLP/GIP-1 agonists and other FDA approved weight loss medications with regards to a multifactorial approach of weight loss as mentioned above and that the medication alone will not be sufficient to meet patients goals. We discussed holistic medication approach with emphasis on lifestyle modification. Discussed obesity as it increases risk of diabetes, cardiovascular disease, and/or organ damage. We spent a lot of time discussing the relationship between food, exercise, sleep, mental health, and obesity. We discussed the importance of having SECAs done every visit and having accountability done during these visits. That the scale is done to monitor not only weight loss but the body composition during medication management and healthy lifestyle changes. We discussed that if the patient is unable at times to financially afford this scale that we would rather waive the fee and have the scale done than have the patient not have the scale obtained. #HTN- currently well controlled, followed by PCP. #AVR- s/p AVR 2010. On coumadin. Weight Consult Plan: Patient has been found to be obese with a BMI of 38.1. Patient has class 2 obesity. Patient was reassured and welcomed to the practice. We discussed that we stress a hollistic medical approach with emphasis on lifestyle modification. Patient was informed that a healthy lifestyle with exercise and good eating habits can help reduce his risk of medical complications. He is explained that obesity increases his risk of diabetes, cardiovascular disease, or organ damage. We spent a lot of time discussing the relationship between food, exercise, sleep, mental health and obesity. Patient was counseled on the importance EATING local, organic food when possible. Patient was educated on clean 15 and dirty dozen. I provided information about reading books called The Food Rules by Geovani Kiran and Eat Fat Get Lean by Dr Tai Sanchez. Self education is important in the journey for weight management. Patient was offered diagnostic testing. We want to measure visceral adiposity, advanced body composition, adverse lipids, fatty acid balance, risk for heart disease and atherosclerosis, markers of inflammation and genetic susceptibility. Patient was counseled on weight management and was advised to lose weight using B. Lifestyle management which includes several strategies as below 1. Eat a low carbohydrate good fat good protein diet. Eliminate refined carbohydrates from the diet. Continue blood sugar and sugared beverages. Eat local organic when possible. Cook your own meals. Read food labels. None about healthy snacks. Portion control and food with low glycemic index 2. Exercise regularly. Try to get at least 6000 steps a day. Use a predominant to track activity level. Consider using apps like [employer], [employer], lose it, stick as needed for self-monitoring and weight management. Consider group exercises. Consider hiring a household personal assistant. Regular exercise is johnson to sustainable health and prevents as a buffer against weight regain 3. Sleep is most important for healing. Tried to sleep at least 8 hours a night. A good quality sleep needs a sleep ritual with ideal room temperature of around 68. It might help to take a shower and have no electronics in the room and sleep in a very dark room without artificial light. Start her sleep routine and get up early in the morning and go to bed on time 4. Make a social connection. Surround yourself with positive people with positive energy. Connect with friends and family. 5. Get into the habit of meditating and mindfulness while doing everything. 6. Go outside and connect with nature. C. Prescription medications Patient was educated on the use of prescription medications for medical weight loss. This is a growing list and includes phentermine, Topamax,Qsymia, contrave, belviq and saxenda. All prescription medications could have side effects including but not limited to kidney stones, seizure disorder cardiac arrhythmias heart attack pancreatitis etc. etc.. Patient was encouraged to read the prescription insert and have coaching with their pharmacist and make an informed decision about taking medication and know that these medications are being prescribed with good intentions and we do not know how a patient would react to her medication. Sudden medications are FDA approved for weight loss and there is also off label use depending on patient's inability to afford medications in an attempt to lose weight D. Behavioral counseling was done to establish a relationship between food and an mood. Patient was provided information about local counseling and psychiatry and Dr Ortez at [facility] We would like to cover regular topics and build on low glycemic eating exercise mindful eating, using yoga and meditation along with deep breathing and connecting with friends and family. E. MASS PAT reviewed, Patient's current medications were reviewed and opinion was given on medication that can cause weight gain and can be substituted F. Patient was assessed for risk with obesity including and not limiting to atherosclerosis heart disease stroke kidney disease, restrictive lung disease, irritable bowel syndrome and overall mortality. Risk of developing prediabetes diabetes and metabolic syndrome was discussed G. Therapeutic plan: We have decided to make therapeutic plan which would include choosing wisely on calories restricting portion getting active, tracking weight, getting good quality sleep and working on time management H. Patient will follow up in (4) weeks for weight management Total time spent today was 60 minutes of which greater than 50% was spent on coordinating and counseling Case discussed with collaborating physician Dennis Sol who reviewed the assessment and plan. Chart, medications, labs, vital signs reviewed. Dictation was accomplished with the use of [employer] voice recognition software, prone to medical misidentifications and grammatical errors. This is unintentional and the practitioner does try to identify and correct these, but some could still be present. Please do not hesitate to contact practitioner for clarification. All questions answered to patients satisfaction. Patient verbalized understanding of diagnosis and treatments explained. To call sooner prior to next visit it any questions/concerns arise. 05/28/2024 Aortic valve replaced (ICD-10 - Z95.2) #Morbid obesity. 05/28/24: 215.9 lbs, BMI 36.8. Sema 0.25 mg She is doing well on compounded semaglutide. She has chosen to stay at the 0.25 mg dose however plans to increase next week to 0.5 mg. Weight is down 8 pounds. Fat mass is down 7 pounds. Discussed importance of increased hydration, increased exercise and regular protein intake. She will also continue SHILO injections every 2 weeks as well. Follow-up with me in 4 to 6 weeks sooner with any concerns. 05/14/24: Sema 0.25 mg, MICC 05/06/24: Sema 0.25 mg 04/29/24: Sema 0.25 mg, MICC 04/21/24: Sema 0.25 mg 04/14/24: Sema 0.25 mg, MICC 04/08/24: 223.9 pounds, BMI 38.1. New patient welcomed to the practice today Seca scale done and reviewed in detail with patient. Reviewed medical weight loss options in detail with patient including phentermine, Contrave, Wegovy, compounded semaglutide, Zepp bound, compounded tirzepatide, metformin, Topamax. She is most interested in Wegovy or compounded semaglutide. We reviewed risk benefits adverse effects of medication in detail. She will check with her insurance in regards to Wegovy coverage. We did discuss that [facility] sometimes will require 3 months of medical weight loss visits prior to coverage. Discussed compounded semaglutide program as an option here in the office which she would like to start today. Will get comprehensive labs and review at follow up visit. The patient will continue exercise regimen with an emphasis on improving/increasing steps to at least 6,000-10,000 steps per day. Increasing cardio and strength training exercises as tolerated to improve weight loss and work on building muscle mass. Patient is committed to smarter eating with calorie counting and mindful eating. Limiting processed foods and carbohydrates and increasing leafy greens and lean proteins as well as fruits into their diet. Patient was counseled on the importance of eating local, organic food when possible. Patient has been counseled regarding effects of GLP/GIP-1 agonists and other FDA approved weight loss medications with regards to a multifactorial approach of weight loss as mentioned above and that the medication alone will not be sufficient to meet patients goals. We discussed holistic medication approach with emphasis on lifestyle modification. Discussed obesity as it increases risk of diabetes, cardiovascular disease, and/or organ damage. We spent a lot of time discussing the relationship between food, exercise, sleep, mental health, and obesity. We discussed the importance of having SECAs done every visit and having accountability done during these visits. That the scale is done to monitor not only weight loss but the body composition during medication management and healthy lifestyle changes. We discussed that if the patient is unable at times to financially afford this scale that we would rather waive the fee and have the scale done than have the patient not have the scale obtained. #HTN- currently well controlled, followed by PCP. #AVR- s/p AVR 2010. On coumadin. Case discussed with collaborating physician Dennis Sol who reviewed the assessment and plan. Chart, medications, labs, vital signs reviewed. Dictation was accomplished with the use of [employer] voice recognition software, prone to medical misidentifications and grammatical errors. This is unintentional and the practitioner does try to identify and correct these, but some could still be present. Please do not hesitate to contact practitioner for clarification. All questions answered to patients satisfaction. Patient verbalized understanding of diagnosis and treatments explained. To call sooner prior to next visit it any questions/concerns arise. 07/01/2024 Aortic valve replaced (ICD-10 - Z95.2) #Morbid obesity. 07/01/24: 211.3 pounds, BMI 36.0. She has done well on compounded semaglutide. Will continue 0.5 mg dose today. Will plan to submit Wegovy at the end of next week. Discussed proper use and demonstrated pen autoinjector. She will continue to work on increased protein, increased hydration and exercise. Follow-up in 4 weeks sooner with any concerns. 05/28/24: 215.9 lbs, BMI 36.8. Sema 0.25 mg She is doing well on compounded semaglutide. She has chosen to stay at the 0.25 mg dose however plans to increase next week to 0.5 mg. Weight is down 8 pounds. Fat mass is down 7 pounds. Discussed importance of increased hydration, increased exercise and regular protein intake. She will also continue SHILO injections every 2 weeks as well. Follow-up with me in 4 to 6 weeks sooner with any concerns. 05/14/24: Sema 0.25 mg, MICC 05/06/24: Sema 0.25 mg 04/29/24: Sema 0.25 mg, MICC 04/21/24: Sema 0.25 mg 04/14/24: Sema 0.25 mg, MICC 04/08/24: 223.9 pounds, BMI 38.1. New patient welcomed to the practice today Seca scale done and reviewed in detail with patient. Reviewed medical weight loss options in detail with patient including phentermine, Contrave, Wegovy, compounded semaglutide, Zepp bound, compounded tirzepatide, metformin, Topamax. She is most interested in Wegovy or compounded semaglutide. We reviewed risk benefits adverse effects of medication in detail. She will check with her insurance in regards to Wegovy coverage. We did discuss that [facility] sometimes will require 3 months of medical weight loss visits prior to coverage. Discussed compounded semaglutide program as an option here in the office which she would like to start today. Will get comprehensive labs and review at follow up visit. The patient will continue exercise regimen with an emphasis on improving/increasing steps to at least 6,000-10,000 steps per day. Increasing cardio and strength training exercises as tolerated to improve weight loss and work on building muscle mass. Patient is committed to smarter eating with calorie counting and mindful eating. Limiting processed foods and carbohydrates and increasing leafy greens and lean proteins as well as fruits into their diet. Patient was counseled on the importance of eating local, organic food when possible. Patient has been counseled regarding effects of GLP/GIP-1 agonists and other FDA approved weight loss medications with regards to a multifactorial approach of weight loss as mentioned above and that the medication alone will not be sufficient to meet patients goals. We discussed holistic medication approach with emphasis on lifestyle modification. Discussed obesity as it increases risk of diabetes, cardiovascular disease, and/or organ damage. We spent a lot of time discussing the relationship between food, exercise, sleep, mental health, and obesity. We discussed the importance of having SECAs done every visit and having accountability done during these visits. That the scale is done to monitor not only weight loss but the body composition during medication management and healthy lifestyle changes. We discussed that if the patient is unable at times to financially afford this scale that we would rather waive the fee and have the scale done than have the patient not have the scale obtained. #HTN- currently well controlled, followed by PCP. #AVR- s/p AVR 2010. On coumadin. Case discussed with collaborating physician Dennis Sol who reviewed the assessment and plan. Chart, medications, labs, vital signs reviewed. Dictation was accomplished with the use of [employer] voice recognition software, prone to medical misidentifications and grammatical errors. This is unintentional and the practitioner does try to identify and correct these, but some could still be present. Please do not hesitate to contact practitioner for clarification. All questions answered to patients satisfaction. Patient verbalized understanding of diagnosis and treatments explained. To call sooner prior to next visit it any questions/concerns arise. 07/29/2024 Aortic valve replaced (ICD-10 - Z95.2) #Morbid obesity. 07/29/24: 215.8 pounds, BMI 36.8. She has been off of compounded semaglutide for 3 weeks. Unfortunately she did have to undergo a cardiac ablation this week. She is healing well and will have follow-up with cardiology on Saturday. Has not been cleared yet to resume exercise. She does report she received notification from [employer] that her appeal was approved for [email or web address] and would like prescription sent to pharmacy. Discussed healthy diet and hydration. Await cardiac clearance prior to resuming exercise regimen. Will follow-up in 4 weeks sooner with any concerns. 07/01/24: 211.3 pounds, BMI 36.0. She has done well on compounded semaglutide. Will continue 0.5 mg dose today. Will plan to submit Wegovy at the end of next week. Discussed proper use and demonstrated pen autoinjector. She will continue to work on increased protein, increased hydration and exercise. Follow-up in 4 weeks sooner with any concerns. 05/28/24: 215.9 lbs, BMI 36.8. Sema 0.25 mg She is doing well on compounded semaglutide. She has chosen to stay at the 0.25 mg dose however plans to increase next week to 0.5 mg. Weight is down 8 pounds. Fat mass is down 7 pounds. Discussed importance of increased hydration, increased exercise and regular protein intake. She will also continue SHILO injections every 2 weeks as well. Follow-up with me in 4 to 6 weeks sooner with any concerns. 05/14/24: Sema 0.25 mg, MICC 05/06/24: Sema 0.25 mg 04/29/24: Sema 0.25 mg, MICC 04/21/24: Sema 0.25 mg 04/14/24: Sema 0.25 mg, MICC 04/08/24: 223.9 pounds, BMI 38.1. New patient welcomed to the practice today Seca scale done and reviewed in detail with patient. Reviewed medical weight loss options in detail with patient including phentermine, Contrave, Wegovy, compounded semaglutide, Zepp bound, compounded tirzepatide, metformin, Topamax. She is most interested in Wegovy or compounded semaglutide. We reviewed risk benefits adverse effects of medication in detail. She will check with her insurance in regards to Wegovy coverage. We did discuss that [facility] sometimes will require 3 months of medical weight loss visits prior to coverage. Discussed compounded semaglutide program as an option here in the office which she would like to start today. Will get comprehensive labs and review at follow up visit. The patient will continue exercise regimen with an emphasis on improving/increasing steps to at least 6,000-10,000 steps per day. Increasing cardio and strength training exercises as tolerated to improve weight loss and work on building muscle mass. Patient is committed to smarter eating with calorie counting and mindful eating. Limiting processed foods and carbohydrates and increasing leafy greens and lean proteins as well as fruits into their diet. Patient was counseled on the importance of eating local, organic food when possible. Patient has been counseled regarding effects of GLP/GIP-1 agonists and other FDA approved weight loss medications with regards to a multifactorial approach of weight loss as mentioned above and that the medication alone will not be sufficient to meet patients goals. We discussed holistic medication approach with emphasis on lifestyle modification. Discussed obesity as it increases risk of diabetes, cardiovascular disease, and/or organ damage. We spent a lot of time discussing the relationship between food, exercise, sleep, mental health, and obesity. We discussed the importance of having SECAs done every visit and having accountability done during these visits. That the scale is done to monitor not only weight loss but the body composition during medication management and healthy lifestyle changes. We discussed that if the patient is unable at times to financially afford this scale that we would rather waive the fee and have the scale done than have the patient not have the scale obtained. #HTN- currently well controlled, followed by PCP. #AVR- s/p AVR 2010. On coumadin. Case discussed with collaborating physician Dennis Sol who reviewed the assessment and plan. Chart, medications, labs, vital signs reviewed. Dictation was accomplished with the use of [employer] voice recognition software, prone to medical misidentifications and grammatical errors. This is unintentional and the practitioner does try to identify and correct these, but some could still be present. Please do not hesitate to contact practitioner for clarification. All questions answered to patients satisfaction. Patient verbalized understanding of diagnosis and treatments explained. To call sooner prior to next visit it any questions/concerns arise. 09/01/2024 Aortic valve replaced (ICD-10 - Z95.2) #Morbid obesity. 07/29/24: 215.8 pounds, BMI 36.8. She has been off of compounded semaglutide for 3 weeks. Unfortunately she did have to undergo a cardiac ablation this week. She is healing well and will have follow-up with cardiology on Saturday. Has not been cleared yet to resume exercise. She does report she received notification from [employer] that her appeal was approved for [email or web address] and would like prescription sent to pharmacy. Discussed healthy diet and hydration. Await cardiac clearance prior to resuming exercise regimen. Will follow-up in 4 weeks sooner with any concerns. 07/01/24: 211.3 pounds, BMI 36.0. She has done well on compounded semaglutide. Will continue 0.5 mg dose today. Will plan to submit Wegovy at the end of next week. Discussed proper use and demonstrated pen autoinjector. She will continue to work on increased protein, increased hydration and exercise. Follow-up in 4 weeks sooner with any concerns. 05/28/24: 215.9 lbs, BMI 36.8. Sema 0.25 mg She is doing well on compounded semaglutide. She has chosen to stay at the 0.25 mg dose however plans to increase next week to 0.5 mg. Weight is down 8 pounds. Fat mass is down 7 pounds. Discussed importance of increased hydration, increased exercise and regular protein intake. She will also continue SHILO injections every 2 weeks as well. Follow-up with me in 4 to 6 weeks sooner with any concerns. 05/14/24: Sema 0.25 mg, MICC 05/06/24: Sema 0.25 mg 04/29/24: Sema 0.25 mg, MICC 04/21/24: Sema 0.25 mg 04/14/24: Sema 0.25 mg, MICC 04/08/24: 223.9 pounds, BMI 38.1. New patient welcomed to the practice today Seca scale done and reviewed in detail with patient. Reviewed medical weight loss options in detail with patient including phentermine, Contrave, Wegovy, compounded semaglutide, Zepp bound, compounded tirzepatide, metformin, Topamax. She is most interested in Wegovy or compounded semaglutide. We reviewed risk benefits adverse effects of medication in detail. She will check with her insurance in regards to Wegovy coverage. We did discuss that [facility] sometimes will require 3 months of medical weight loss visits prior to coverage. Discussed compounded semaglutide program as an option here in the office which she would like to start today. Will get comprehensive labs and review at follow up visit. The patient will continue exercise regimen with an emphasis on improving/increasing steps to at least 6,000-10,000 steps per day. Increasing cardio and strength training exercises as tolerated to improve weight loss and work on building muscle mass. Patient is committed to smarter eating with calorie counting and mindful eating. Limiting processed foods and carbohydrates and increasing leafy greens and lean proteins as well as fruits into their diet. Patient was counseled on the importance of eating local, organic food when possible. Patient has been counseled regarding effects of GLP/GIP-1 agonists and other FDA approved weight loss medications with regards to a multifactorial approach of weight loss as mentioned above and that the medication alone will not be sufficient to meet patients goals. We discussed holistic medication approach with emphasis on lifestyle modification. Discussed obesity as it increases risk of diabetes, cardiovascular disease, and/or organ damage. We spent a lot of time discussing the relationship between food, exercise, sleep, mental health, and obesity. We discussed the importance of having SECAs done every visit and having accountability done during these visits. That the scale is done to monitor not only weight loss but the body composition during medication management and healthy lifestyle changes. We discussed that if the patient is unable at times to financially afford this scale that we would rather waive the fee and have the scale done than have the patient not have the scale obtained. #HTN- currently well controlled, followed by PCP. #AVR- s/p AVR 2010. On coumadin. Case discussed with collaborating physician Dennis Sol who reviewed the assessment and plan. Chart, medications, labs, vital signs reviewed. Dictation was accomplished with the use of [employer] voice recognition software, prone to medical misidentifications and grammatical errors. This is unintentional and the practitioner does try to identify and correct these, but some could still be present. Please do not hesitate to contact practitioner for clarification. All questions answered to patients satisfaction. Patient verbalized understanding of diagnosis and treatments explained. To call sooner prior to next visit it any questions/concerns arise. 01/11/2025 Aortic valve replaced (ICD-10 - Z95.2) #Morbid obesity. 01/11/25: 204.8 pounds, BMI 34.9. Patient was seen after 5-month hiatus. Unfortunately she had recurrent tachycardia and palpitations while on Wegovy. She did undergo cardiac ablation however had persistent symptoms. Has been off of Wegovy since and symptoms have improved. We discussed other medical weight loss options in detail however given side effect profile and her cardiac history I would not suggest Contrave, phentermine or Zepbound at this time. She plans to work on lifestyle modifications with consistent protein intake, hydration and regular exercise. Will follow-up with me in 1 month for repeat Seca scale. We did discuss option of more holistic approach with supplements which she declines at this time. Will follow-up again in 1 month sooner with any concerns. The patient will continue exercise regimen with an emphasis on improving/increasing steps to at least 6,000-10,000 steps per day. Increasing cardio and strength training exercises as tolerated to improve weight loss and work on building muscle mass. Patient is committed to smarter eating with calorie counting and mindful eating. Limiting processed foods and carbohydrates and increasing leafy greens and lean proteins as well as fruits into their diet. Patient was counseled on the importance of eating local, organic food when possible. Patient has been counseled regarding effects of GLP/GIP-1 agonists and other FDA approved weight loss medications with regards to a multifactorial approach of weight loss as mentioned above and that the medication alone will not be sufficient to meet patients goals. We discussed holistic medication approach with emphasis on lifestyle modification. Discussed obesity as it increases risk of diabetes, cardiovascular disease, and/or organ damage. We spent a lot of time discussing the relationship between food, exercise, sleep, mental health, and obesity. We discussed the importance of having SECAs done every visit and having accountability done during these visits. That the scale is done to monitor not only weight loss but the body composition during medication management and healthy lifestyle changes. We discussed that if the patient is unable at times to financially afford this scale that we would rather waive the fee and have the scale done than have the patient not have the scale obtained. #HTN- currently well controlled, followed by PCP. #AVR- s/p AVR 2010. On coumadin. Case discussed with collaborating physician Tu Sol who reviewed the assessment and plan. Chart, medications, labs, vital signs reviewed. Dictation was accomplished with the use of [employer] voice recognition software, prone to medical misidentifications and grammatical errors. This is unintentional and the practitioner does try to identify and correct these, but some could still be present. Please do not hesitate to contact practitioner for clarification. All questions answered to patients satisfaction. Patient verbalized understanding of diagnosis and treatments explained. To call sooner prior to next visit it any questions/concerns arise. 02/08/2025 Aortic valve replaced (ICD-10 - Z95.2) #Morbid obesity. 01/11/25: 204.8 pounds, BMI 34.9. Patient was seen after 5-month hiatus. Unfortunately she had recurrent tachycardia and palpitations while on Wegovy. She did undergo cardiac ablation however had persistent symptoms. Has been off of Wegovy since and symptoms have improved. We discussed other medical weight loss options in detail however given side effect profile and her cardiac history I would not suggest Contrave, phentermine or Zepbound at this time. She plans to work on lifestyle modifications with consistent protein intake, hydration and regular exercise. Will follow-up with me in 1 month for repeat Seca scale. We did discuss option of more holistic approach with supplements which she declines at this time. Will follow-up again in 1 month sooner with any concerns. The patient will continue exercise regimen with an emphasis on improving/increasing steps to at least 6,000-10,000 steps per day. Increasing cardio and strength training exercises as tolerated to improve weight loss and work on building muscle mass. Patient is committed to smarter eating with calorie counting and mindful eating. Limiting processed foods and carbohydrates and increasing leafy greens and lean proteins as well as fruits into their diet. Patient was counseled on the importance of eating local, organic food when possible. Patient has been counseled regarding effects of GLP/GIP-1 agonists and other FDA approved weight loss medications with regards to a multifactorial approach of weight loss as mentioned above and that the medication alone will not be sufficient to meet patients goals. We discussed holistic medication approach with emphasis on lifestyle modification. Discussed obesity as it increases risk of diabetes, cardiovascular disease, and/or organ damage. We spent a lot of time discussing the relationship between food, exercise, sleep, mental health, and obesity. We discussed the importance of having SECAs done every visit and having accountability done during these visits. That the scale is done to monitor not only weight loss but the body composition during medication management and healthy lifestyle changes. We discussed that if the patient is unable at times to financially afford this scale that we would rather waive the fee and have the scale done than have the patient not have the scale obtained. #HTN- currently well controlled, followed by PCP. #AVR- s/p AVR 2010. On coumadin. Case discussed with collaborating physician Tu Sol who reviewed the assessment and plan. Chart, medications, labs, vital signs reviewed. Dictation was accomplished with the use of Dragon voice recognition software, prone to medical misidentifications and grammatical errors. This is unintentional and the practitioner does try to identify and correct these, but some could still be present. Please do not hesitate to contact practitioner for clarification. All questions answered to patients satisfaction. Patient verbalized understanding of diagnosis and treatments explained. To call sooner prior to next visit it any questions/concerns arise. 02/08/2025 Current use of terminal superintendent anticoagulation (ICD-10 - Z79.01) #Morbid obesity. 01/11/25: 204.8 pounds, BMI 34.9. Patient was seen after 5-month hiatus. Unfortunately she had recurrent tachycardia and palpitations while on Wegovy. She did undergo cardiac ablation however had persistent symptoms. Has been off of Wegovy since and symptoms have improved. We discussed other medical weight loss options in detail however given side effect profile and her cardiac history I would not suggest Contrave, phentermine or Zepbound at this time. She plans to work on lifestyle modifications with consistent protein intake, hydration and regular exercise. Will follow-up with me in 1 month for repeat Seca scale. We did discuss option of more holistic approach with supplements which she declines at this time. Will follow-up again in 1 month sooner with any concerns. The patient will continue exercise regimen with an emphasis on improving/increasing steps to at least 6,000-10,000 steps per day. Increasing cardio and strength training exercises as tolerated to improve weight loss and work on building muscle mass. Patient is committed to smarter eating with calorie counting and mindful eating. Limiting processed foods and carbohydrates and increasing leafy greens and lean proteins as well as fruits into their diet. Patient was counseled on the importance of eating local, organic food when possible. Patient has been counseled regarding effects of GLP/GIP-1 agonists and other FDA approved weight loss medications with regards to a multifactorial approach of weight loss as mentioned above and that the medication alone will not be sufficient to meet patients goals. We discussed holistic medication approach with emphasis on lifestyle modification. Discussed obesity as it increases risk of diabetes, cardiovascular disease, and/or organ damage. We spent a lot of time discussing the relationship between food, exercise, sleep, mental health, and obesity. We discussed the importance of having SECAs done every visit and having accountability done during these visits. That the scale is done to monitor not only weight loss but the body composition during medication management and healthy lifestyle changes. We discussed that if the patient is unable at times to financially afford this scale that we would rather waive the fee and have the scale done than have the patient not have the scale obtained. #HTN- currently well controlled, followed by PCP. #AVR- s/p AVR 2010. On coumadin. Case discussed with collaborating physician Tu Sol who reviewed the assessment and plan. Chart, medications, labs, vital signs reviewed. Dictation was accomplished with the use of [employer] voice recognition software, prone to medical misidentifications and grammatical errors. This is unintentional and the practitioner does try to identify and correct these, but some could still be present. Please do not hesitate to contact practitioner for clarification. All questions answered to patients satisfaction. Patient verbalized understanding of diagnosis and treatments explained. To call sooner prior to next visit it any questions/concerns arise. 01/11/2025 Current use of snf anticoagulation (ICD-10 - Z79.01) #Morbid obesity. 01/11/25: 204.8 pounds, BMI 34.9. Patient was seen after 5-month hiatus. Unfortunately she had recurrent tachycardia and palpitations while on Wegovy. She did undergo cardiac ablation however had persistent symptoms. Has been off of Wegovy since and symptoms have improved. We discussed other medical weight loss options in detail however given side effect profile and her cardiac history I would not suggest Contrave, phentermine or Zepbound at this time. She plans to work on lifestyle modifications with consistent protein intake, hydration and regular exercise. Will follow-up with me in 1 month for repeat Seca scale. We did discuss option of more holistic approach with supplements which she declines at this time. Will follow-up again in 1 month sooner with any concerns. The patient will continue exercise regimen with an emphasis on improving/increasing steps to at least 6,000-10,000 steps per day. Increasing cardio and strength training exercises as tolerated to improve weight loss and work on building muscle mass. Patient is committed to smarter eating with calorie counting and mindful eating. Limiting processed foods and carbohydrates and increasing leafy greens and lean proteins as well as fruits into their diet. Patient was counseled on the importance of eating local, organic food when possible. Patient has been counseled regarding effects of GLP/GIP-1 agonists and other FDA approved weight loss medications with regards to a multifactorial approach of weight loss as mentioned above and that the medication alone will not be sufficient to meet patients goals. We discussed holistic medication approach with emphasis on lifestyle modification. Discussed obesity as it increases risk of diabetes, cardiovascular disease, and/or organ damage. We spent a lot of time discussing the relationship between food, exercise, sleep, mental health, and obesity. We discussed the importance of having SECAs done every visit and having accountability done during these visits. That the scale is done to monitor not only weight loss but the body composition during medication management and healthy lifestyle changes. We discussed that if the patient is unable at times to financially afford this scale that we would rather waive the fee and have the scale done than have the patient not have the scale obtained. #HTN- currently well controlled, followed by PCP. #AVR- s/p AVR 2010. On coumadin. Case discussed with collaborating physician Tu Sol who reviewed the assessment and plan. Chart, medications, labs, vital signs reviewed. Dictation was accomplished with the use of [employer] voice recognition software, prone to medical misidentifications and grammatical errors. This is unintentional and the practitioner does try to identify and correct these, but some could still be present. Please do not hesitate to contact practitioner for clarification. All questions answered to patients satisfaction. Patient verbalized understanding of diagnosis and treatments explained. To call sooner prior to next visit it any questions/concerns arise. 07/29/2024 Current use of snf anticoagulation (ICD-10 - Z79.01) #Morbid obesity. 07/29/24: 215.8 pounds, BMI 36.8. She has been off of compounded semaglutide for 3 weeks. Unfortunately she did have to undergo a cardiac ablation this week. She is healing well and will have follow-up with cardiology on Saturday. Has not been cleared yet to resume exercise. She does report she received notification from [employer] that her appeal was approved for [email or web address] and would like prescription sent to pharmacy. Discussed healthy diet and hydration. Await cardiac clearance prior to resuming exercise regimen. Will follow-up in 4 weeks sooner with any concerns. 07/01/24: 211.3 pounds, BMI 36.0. She has done well on compounded semaglutide. Will continue 0.5 mg dose today. Will plan to submit Wegovy at the end of next week. Discussed proper use and demonstrated pen autoinjector. She will continue to work on increased protein, increased hydration and exercise. Follow-up in 4 weeks sooner with any concerns. 05/28/24: 215.9 lbs, BMI 36.8. Sema 0.25 mg She is doing well on compounded semaglutide. She has chosen to stay at the 0.25 mg dose however plans to increase next week to 0.5 mg. Weight is down 8 pounds. Fat mass is down 7 pounds. Discussed importance of increased hydration, increased exercise and regular protein intake. She will also continue SHILO injections every 2 weeks as well. Follow-up with me in 4 to 6 weeks sooner with any concerns. 05/14/24: Sema 0.25 mg, MICC 05/06/24: Sema 0.25 mg 04/29/24: Sema 0.25 mg, MICC 04/21/24: Sema 0.25 mg 04/14/24: Sema 0.25 mg, MICC 04/08/24: 223.9 pounds, BMI 38.1. New patient welcomed to the practice today Seca scale done and reviewed in detail with patient. Reviewed medical weight loss options in detail with patient including phentermine, Contrave, Wegovy, compounded semaglutide, Zepp bound, compounded tirzepatide, metformin, Topamax. She is most interested in Wegovy or compounded semaglutide. We reviewed risk benefits adverse effects of medication in detail. She will check with her insurance in regards to Wegovy coverage. We did discuss that [facility] sometimes will require 3 months of medical weight loss visits prior to coverage. Discussed compounded semaglutide program as an option here in the office which she would like to start today. Will get comprehensive labs and review at follow up visit. The patient will continue exercise regimen with an emphasis on improving/increasing steps to at least 6,000-10,000 steps per day. Increasing cardio and strength training exercises as tolerated to improve weight loss and work on building muscle mass. Patient is committed to smarter eating with calorie counting and mindful eating. Limiting processed foods and carbohydrates and increasing leafy greens and lean proteins as well as fruits into their diet. Patient was counseled on the importance of eating local, organic food when possible. Patient has been counseled regarding effects of GLP/GIP-1 agonists and other FDA approved weight loss medications with regards to a multifactorial approach of weight loss as mentioned above and that the medication alone will not be sufficient to meet patients goals. We discussed holistic medication approach with emphasis on lifestyle modification. Discussed obesity as it increases risk of diabetes, cardiovascular disease, and/or organ damage. We spent a lot of time discussing the relationship between food, exercise, sleep, mental health, and obesity. We discussed the importance of having SECAs done every visit and having accountability done during these visits. That the scale is done to monitor not only weight loss but the body composition during medication management and healthy lifestyle changes. We discussed that if the patient is unable at times to financially afford this scale that we would rather waive the fee and have the scale done than have the patient not have the scale obtained. #HTN- currently well controlled, followed by PCP. #AVR- s/p AVR 2010. On coumadin. Case discussed with collaborating physician Dennis Sol who reviewed the assessment and plan. Chart, medications, labs, vital signs reviewed. Dictation was accomplished with the use of [employer] voice recognition software, prone to medical misidentifications and grammatical errors. This is unintentional and the practitioner does try to identify and correct these, but some could still be present. Please do not hesitate to contact practitioner for clarification. All questions answered to patients satisfaction. Patient verbalized understanding of diagnosis and treatments explained. To call sooner prior to next visit it any questions/concerns arise. 09/01/2024 Current use of snf anticoagulation (ICD-10 - Z79.01) #Morbid obesity. 07/29/24: 215.8 pounds, BMI 36.8. She has been off of compounded semaglutide for 3 weeks. Unfortunately she did have to undergo a cardiac ablation this week. She is healing well and will have follow-up with cardiology on Saturday. Has not been cleared yet to resume exercise. She does report she received notification from [employer] that her appeal was approved for [email or web address] and would like prescription sent to pharmacy. Discussed healthy diet and hydration. Await cardiac clearance prior to resuming exercise regimen. Will follow-up in 4 weeks sooner with any concerns. 07/01/24: 211.3 pounds, BMI 36.0. She has done well on compounded semaglutide. Will continue 0.5 mg dose today. Will plan to submit Wegovy at the end of next week. Discussed proper use and demonstrated pen autoinjector. She will continue to work on increased protein, increased hydration and exercise. Follow-up in 4 weeks sooner with any concerns. 05/28/24: 215.9 lbs, BMI 36.8. Sema 0.25 mg She is doing well on compounded semaglutide. She has chosen to stay at the 0.25 mg dose however plans to increase next week to 0.5 mg. Weight is down 8 pounds. Fat mass is down 7 pounds. Discussed importance of increased hydration, increased exercise and regular protein intake. She will also continue SHILO injections every 2 weeks as well. Follow-up with me in 4 to 6 weeks sooner with any concerns. 05/14/24: Sema 0.25 mg, MICC 05/06/24: Sema 0.25 mg 04/29/24: Sema 0.25 mg, MICC 04/21/24: Sema 0.25 mg 04/14/24: Sema 0.25 mg, MICC 04/08/24: 223.9 pounds, BMI 38.1. New patient welcomed to the practice today Seca scale done and reviewed in detail with patient. Reviewed medical weight loss options in detail with patient including phentermine, Contrave, Wegovy, compounded semaglutide, Zepp bound, compounded tirzepatide, metformin, Topamax. She is most interested in Wegovy or compounded semaglutide. We reviewed risk benefits adverse effects of medication in detail. She will check with her insurance in regards to Wegovy coverage. We did discuss that [facility] sometimes will require 3 months of medical weight loss visits prior to coverage. Discussed compounded semaglutide program as an option here in the office which she would like to start today. Will get comprehensive labs and review at follow up visit. The patient will continue exercise regimen with an emphasis on improving/increasing steps to at least 6,000-10,000 steps per day. Increasing cardio and strength training exercises as tolerated to improve weight loss and work on building muscle mass. Patient is committed to smarter eating with calorie counting and mindful eating. Limiting processed foods and carbohydrates and increasing leafy greens and lean proteins as well as fruits into their diet. Patient was counseled on the importance of eating local, organic food when possible. Patient has been counseled regarding effects of GLP/GIP-1 agonists and other FDA approved weight loss medications with regards to a multifactorial approach of weight loss as mentioned above and that the medication alone will not be sufficient to meet patients goals. We discussed holistic medication approach with emphasis on lifestyle modification. Discussed obesity as it increases risk of diabetes, cardiovascular disease, and/or organ damage. We spent a lot of time discussing the relationship between food, exercise, sleep, mental health, and obesity. We discussed the importance of having SECAs done every visit and having accountability done during these visits. That the scale is done to monitor not only weight loss but the body composition during medication management and healthy lifestyle changes. We discussed that if the patient is unable at times to financially afford this scale that we would rather waive the fee and have the scale done than have the patient not have the scale obtained. #HTN- currently well controlled, followed by PCP. #AVR- s/p AVR 2010. On coumadin. Case discussed with collaborating physician Dennis Sol who reviewed the assessment and plan. Chart, medications, labs, vital signs reviewed. Dictation was accomplished with the use of [employer] voice recognition software, prone to medical misidentifications and grammatical errors. This is unintentional and the practitioner does try to identify and correct these, but some could still be present. Please do not hesitate to contact practitioner for clarification. All questions answered to patients satisfaction. Patient verbalized understanding of diagnosis and treatments explained. To call sooner prior to next visit it any questions/concerns arise. 07/01/2024 Current use of terminal superintendent anticoagulation (ICD-10 - Z79.01) #Morbid obesity. 07/01/24: 211.3 pounds, BMI 36.0. She has done well on compounded semaglutide. Will continue 0.5 mg dose today. Will plan to submit Wegovy at the end of next week. Discussed proper use and demonstrated pen autoinjector. She will continue to work on increased protein, increased hydration and exercise. Follow-up in 4 weeks sooner with any concerns. 05/28/24: 215.9 lbs, BMI 36.8. Sema 0.25 mg She is doing well on compounded semaglutide. She has chosen to stay at the 0.25 mg dose however plans to increase next week to 0.5 mg. Weight is down 8 pounds. Fat mass is down 7 pounds. Discussed importance of increased hydration, increased exercise and regular protein intake. She will also continue SHILO injections every 2 weeks as well. Follow-up with me in 4 to 6 weeks sooner with any concerns. 05/14/24: Sema 0.25 mg, MICC 05/06/24: Sema 0.25 mg 04/29/24: Sema 0.25 mg, MICC 04/21/24: Sema 0.25 mg 04/14/24: Sema 0.25 mg, MICC 04/08/24: 223.9 pounds, BMI 38.1. New patient welcomed to the practice today Seca scale done and reviewed in detail with patient. Reviewed medical weight loss options in detail with patient including phentermine, Contrave, Wegovy, compounded semaglutide, Zepp bound, compounded tirzepatide, metformin, Topamax. She is most interested in Wegovy or compounded semaglutide. We reviewed risk benefits adverse effects of medication in detail. She will check with her insurance in regards to Wegovy coverage. We did discuss that [facility] sometimes will require 3 months of medical weight loss visits prior to coverage. Discussed compounded semaglutide program as an option here in the office which she would like to start today. Will get comprehensive labs and review at follow up visit. The patient will continue exercise regimen with an emphasis on improving/increasing steps to at least 6,000-10,000 steps per day. Increasing cardio and strength training exercises as tolerated to improve weight loss and work on building muscle mass. Patient is committed to smarter eating with calorie counting and mindful eating. Limiting processed foods and carbohydrates and increasing leafy greens and lean proteins as well as fruits into their diet. Patient was counseled on the importance of eating local, organic food when possible. Patient has been counseled regarding effects of GLP/GIP-1 agonists and other FDA approved weight loss medications with regards to a multifactorial approach of weight loss as mentioned above and that the medication alone will not be sufficient to meet patients goals. We discussed holistic medication approach with emphasis on lifestyle modification. Discussed obesity as it increases risk of diabetes, cardiovascular disease, and/or organ damage. We spent a lot of time discussing the relationship between food, exercise, sleep, mental health, and obesity. We discussed the importance of having SECAs done every visit and having accountability done during these visits. That the scale is done to monitor not only weight loss but the body composition during medication management and healthy lifestyle changes. We discussed that if the patient is unable at times to financially afford this scale that we would rather waive the fee and have the scale done than have the patient not have the scale obtained. #HTN- currently well controlled, followed by PCP. #AVR- s/p AVR 2010. On coumadin. Case discussed with collaborating physician Dennis Sol who reviewed the assessment and plan. Chart, medications, labs, vital signs reviewed. Dictation was accomplished with the use of [employer] voice recognition software, prone to medical misidentifications and grammatical errors. This is unintentional and the practitioner does try to identify and correct these, but some could still be present. Please do not hesitate to contact practitioner for clarification. All questions answered to patients satisfaction. Patient verbalized understanding of diagnosis and treatments explained. To call sooner prior to next visit it any questions/concerns arise. 04/08/2024 Current use of snf anticoagulation (ICD-10 - Z79.01) #Morbid obesity. 223.9 pounds, BMI 38.1. New patient welcomed to the practice today Seca scale done and reviewed in detail with patient. Reviewed medical weight loss options in detail with patient including phentermine, Contrave, Wegovy, compounded semaglutide, Zepp bound, compounded tirzepatide, metformin, Topamax. She is most interested in Wegovy or compounded semaglutide. We reviewed risk benefits adverse effects of medication in detail. She will check with her insurance in regards to Wegovy coverage. We did discuss that [facility] sometimes will require 3 months of medical weight loss visits prior to coverage. Discussed compounded semaglutide program as an option here in the office which she would like to start today. Will get comprehensive labs and review at follow up visit. Patient will be started on Semaglutide compounded per our office protocol. They will start on 0.25 mg once weekly for weeks 1-4. They will follow up with me in 4 weeks at which time a repeat SECA scale will be reviewed. If Semaglutide has been tolerated well, the dose will increase to 0.5 mg once weekly for weeks 5-8. Follow up with the provider every 4 weeks with repeat SECA scale is required. If tolerated, dose will be increased to 1 mg after 8 weeks for weeks 9-12. Prior authorization for Wegovy will be started between weeks 11-13 and can take up to 4 weeks to complete. Out of pocket cost was reviewed with patient and escalating cost with escalating dose was reviewed. Discussed importance of supplementation with probiotics, B complex vitamins. We also reviewed lab monitoring routinely throughout. Discussed importance of protein intake, water intake, regular exercise and good sleep habits. The patient will continue exercise regimen with an emphasis on improving/increasing steps to at least 6,000-10,000 steps per day. Increasing cardio and strength training exercises as tolerated to improve weight loss and work on building muscle mass. Patient is committed to smarter eating with calorie counting and mindful eating. Limiting processed foods and carbohydrates and increasing leafy greens and lean proteins as well as fruits into their diet. Patient was counseled on the importance of eating local, organic food when possible. Patient has been counseled regarding effects of GLP/GIP-1 agonists and other FDA approved weight loss medications with regards to a multifactorial approach of weight loss as mentioned above and that the medication alone will not be sufficient to meet patients goals. We discussed holistic medication approach with emphasis on lifestyle modification. Discussed obesity as it increases risk of diabetes, cardiovascular disease, and/or organ damage. We spent a lot of time discussing the relationship between food, exercise, sleep, mental health, and obesity. We discussed the importance of having SECAs done every visit and having accountability done during these visits. That the scale is done to monitor not only weight loss but the body composition during medication management and healthy lifestyle changes. We discussed that if the patient is unable at times to financially afford this scale that we would rather waive the fee and have the scale done than have the patient not have the scale obtained. #HTN- currently well controlled, followed by PCP. #AVR- s/p AVR 2010. On coumadin. Weight Consult Plan: Patient has been found to be obese with a BMI of 38.1. Patient has class 2 obesity. Patient was reassured and welcomed to the practice. We discussed that we stress a hollistic medical approach with emphasis on lifestyle modification. Patient was informed that a healthy lifestyle with exercise and good eating habits can help reduce his risk of medical complications. He is explained that obesity increases his risk of diabetes, cardiovascular disease, or organ damage. We spent a lot of time discussing the relationship between food, exercise, sleep, mental health and obesity. Patient was counseled on the importance EATING local, organic food when possible. Patient was educated on clean 15 and dirty dozen. I provided information about reading books called The Food Rules by Geovani Kiran and Eat Fat Get Lean by Dr Tai Sanchez. Self education is important in the journey for weight management. Patient was offered diagnostic testing. We want to measure visceral adiposity, advanced body composition, adverse lipids, fatty acid balance, risk for heart disease and atherosclerosis, markers of inflammation and genetic susceptibility. Patient was counseled on weight management and was advised to lose weight using B. Lifestyle management which includes several strategies as below 1. Eat a low carbohydrate good fat good protein diet. Eliminate refined carbohydrates from the diet. Continue blood sugar and sugared beverages. Eat local organic when possible. Cook your own meals. Read food labels. None about healthy snacks. Portion control and food with low glycemic index 2. Exercise regularly. Try to get at least 6000 steps a day. Use a predominant to track activity level. Consider using apps like [employer], [employer], lose it, stick as needed for self-monitoring and weight management. Consider group exercises. Consider hiring a household personal assistant. Regular exercise is johnson to sustainable health and prevents as a buffer against weight regain 3. Sleep is most important for healing. Tried to sleep at least 8 hours a night. A good quality sleep needs a sleep ritual with ideal room temperature of around 68. It might help to take a shower and have no electronics in the room and sleep in a very dark room without artificial light. Start her sleep routine and get up early in the morning and go to bed on time 4. Make a social connection. Surround yourself with positive people with positive energy. Connect with friends and family. 5. Get into the habit of meditating and mindfulness while doing everything. 6. Go outside and connect with nature. C. Prescription medications Patient was educated on the use of prescription medications for medical weight loss. This is a growing list and includes phentermine, Topamax,Qsymia, contrave, belviq and saxenda. All prescription medications could have side effects including but not limited to kidney stones, seizure disorder cardiac arrhythmias heart attack pancreatitis etc. etc.. Patient was encouraged to read the prescription insert and have coaching with their pharmacist and make an informed decision about taking medication and know that these medications are being prescribed with good intentions and we do not know how a patient would react to her medication. Sudden medications are FDA approved for weight loss and there is also off label use depending on patient's inability to afford medications in an attempt to lose weight D. Behavioral counseling was done to establish a relationship between food and an mood. Patient was provided information about local counseling and psychiatry and Dr Ortez at [facility] We would like to cover regular topics and build on low glycemic eating exercise mindful eating, using yoga and meditation along with deep breathing and connecting with friends and family. E. MASS PAT reviewed, Patient's current medications were reviewed and opinion was given on medication that can cause weight gain and can be substituted F. Patient was assessed for risk with obesity including and not limiting to atherosclerosis heart disease stroke kidney disease, restrictive lung disease, irritable bowel syndrome and overall mortality. Risk of developing prediabetes diabetes and metabolic syndrome was discussed G. Therapeutic plan: We have decided to make therapeutic plan which would include choosing wisely on calories restricting portion getting active, tracking weight, getting good quality sleep and working on time management H. Patient will follow up in (4) weeks for weight management Total time spent today was 60 minutes of which greater than 50% was spent on coordinating and counseling Case discussed with collaborating physician Dennis Sol who reviewed the assessment and plan. Chart, medications, labs, vital signs reviewed. Dictation was accomplished with the use of [employer] voice recognition software, prone to medical misidentifications and grammatical errors. This is unintentional and the practitioner does try to identify and correct these, but some could still be present. Please do not hesitate to contact practitioner for clarification. All questions answered to patients satisfaction. Patient verbalized understanding of diagnosis and treatments explained. To call sooner prior to next visit it any questions/concerns arise. 05/28/2024 Current use of terminal superintendent anticoagulation (ICD-10 - Z79.01) #Morbid obesity. 05/28/24: 215.9 lbs, BMI 36.8. Sema 0.25 mg She is doing well on compounded semaglutide. She has chosen to stay at the 0.25 mg dose however plans to increase next week to 0.5 mg. Weight is down 8 pounds. Fat mass is down 7 pounds. Discussed importance of increased hydration, increased exercise and regular protein intake. She will also continue SHILO injections every 2 weeks as well. Follow-up with me in 4 to 6 weeks sooner with any concerns. 05/14/24: Sema 0.25 mg, MICC 05/06/24: Sema 0.25 mg 04/29/24: Sema 0.25 mg, MICC 04/21/24: Sema 0.25 mg 04/14/24: Sema 0.25 mg, MICC 04/08/24: 223.9 pounds, BMI 38.1. New patient welcomed to the practice today Seca scale done and reviewed in detail with patient. Reviewed medical weight loss options in detail with patient including phentermine, Contrave, Wegovy, compounded semaglutide, Zepp bound, compounded tirzepatide, metformin, Topamax. She is most interested in Wegovy or compounded semaglutide. We reviewed risk benefits adverse effects of medication in detail. She will check with her insurance in regards to Wegovy coverage. We did discuss that [facility] sometimes will require 3 months of medical weight loss visits prior to coverage. Discussed compounded semaglutide program as an option here in the office which she would like to start today. Will get comprehensive labs and review at follow up visit. The patient will continue exercise regimen with an emphasis on improving/increasing steps to at least 6,000-10,000 steps per day. Increasing cardio and strength training exercises as tolerated to improve weight loss and work on building muscle mass. Patient is committed to smarter eating with calorie counting and mindful eating. Limiting processed foods and carbohydrates and increasing leafy greens and lean proteins as well as fruits into their diet. Patient was counseled on the importance of eating local, organic food when possible. Patient has been counseled regarding effects of GLP/GIP-1 agonists and other FDA approved weight loss medications with regards to a multifactorial approach of weight loss as mentioned above and that the medication alone will not be sufficient to meet patients goals. We discussed holistic medication approach with emphasis on lifestyle modification. Discussed obesity as it increases risk of diabetes, cardiovascular disease, and/or organ damage. We spent a lot of time discussing the relationship between food, exercise, sleep, mental health, and obesity. We discussed the importance of having SECAs done every visit and having accountability done during these visits. That the scale is done to monitor not only weight loss but the body composition during medication management and healthy lifestyle changes. We discussed that if the patient is unable at times to financially afford this scale that we would rather waive the fee and have the scale done than have the patient not have the scale obtained. #HTN- currently well controlled, followed by PCP. #AVR- s/p AVR 2010. On coumadin. Case discussed with collaborating physician Dennis Sol who reviewed the assessment and plan. Chart, medications, labs, vital signs reviewed. Dictation was accomplished with the use of [employer] voice recognition software, prone to medical misidentifications and grammatical errors. This is unintentional and the practitioner does try to identify and correct these, but some could still be present. Please do not hesitate to contact practitioner for clarification. All questions answered to patients satisfaction. Patient verbalized understanding of diagnosis and treatments explained. To call sooner prior to next visit it any questions/concerns arise. PLAN OF TREATMENT Pending Test Test Name Order Date CBC (COMPLETE BLOOD COUNT) WITH DIFF 09/2024 COMPREHENSIVE METABOLIC PANEL 04/08/2024 LIPID PANEL 04/08/2024 LIPID PANEL 04/29/2024 HEMOGLOBIN A1c 04/08/2024 INSULIN 04/08/2024 TSH 04/08/2024 VITAMIN D, 1,25 DIHYDROXY LC/MS/MS 04/08 Insurance Providers Payer Name Payer Address Payer Phone Subscriber Number Group Number Insured Name Patient Relationship to Insured Coverage Start Date Coverage End Date [facility] [address] [place] [address] [phone] [id number] Mindy Powers Self - patient is the insured 5 MEDICATIONS ADMINISTERED Medication Instructions Date of Administration Dosage Notes MICC B12 INJECTION 04/08/2024 MICC B12 INJECTION 04/14/2024 1 mg MICC B12 INJECTION 04/21/2024 1 mL MICC B12 INJECTION 04/29/2024 1 mL MICC B12 INJECTION 05/06/2024 1 mg MICC B12 INJECTION 05/14/2024 1 mL MICC B12 INJECTION 05/22/2024 Semaglutide 04/08/2024 .25 Semaglutide 04/14/2024 0.25 mg Semaglutide 04/21/2024 0.25 mg Semaglutide 04/29/2024 0.25 mg Semaglutide 05/06/2024 0.25 mg Semaglutide 05/14/2024 0.25 mg Semaglutide 05/22/2024 .25 mg Semaglutide 05/28/2024 Semaglutide 06/03/2024 0.5 mg Semaglutide 06/17/2024 0.5 mg Semaglutide 07/01/2024 .5 mg MEDICAL (GENERAL) HISTORY Medical History History ICD Code anxiety hypertension aortic valve replacement Surgical History Surgery Date(Month/Year) aortic valve replacement 2010
--- OUTSIDE RECORDS SUMMARY | 2025-02-22 18:52 | XMS_ITS ---
Author Organization [facility] Address [address] [place] [address] Care Team Providers Care Research Asst Name Role Phone Edna Flores Unavailable [phone] MEDICATIONS Medication SIG (Take, Route, Frequency, Duration) Notes Start Date End Date Status Magnesium Oxide 400 MG 1 tablet as neede d Orally Once a day Active Coumadin Active Metoprolol Succinate 100 MG 1 capsule Orally Once a day Active PriLOSEC OTC 20 MG 1 tablet 30 minutes before morning meal Orally Once a day Active Encounters Encounter Location Date Provider Diagnosis [address] [address] 02/08/2025 Edna Flores Morbid (severe) obes ity due to excess calories E66.01 ; BMI 35.0-35.9,adult Z68.35 ; Essential hypertension I10 ; Aortic valve replaced Z95.2 and Current use of care home anticoagulation Z79.01 ASSESSMENTS Encounter Date Diagnosis Assessment Notes Treatment Notes Treatment Clinical Notes Section Notes 02/08/2025 Morbid (severe) obesity due to excess [...] Dictation was accomplished with the use of [employer] voice recognition software, prone to medical misidentifications [...] Dictation was accomplished with the use of [employer] voice recognition software, prone to medical misidentifications [...] Dictation was accomplished with the use of [employer] voice recognition software, prone to medical misidentifications [...] Dictation was accomplished with the use of [employer] voice recognition software, prone to medical misidentifications [...] any questions/concerns arise. 02/08/2025 Current use of [facility] global anticoagulation (ICD-10 - Z79.01) #Morbid obesity. 01/11/25: [...] Dictation was accomplished with the use of [employer] voice recognition software, prone to medical misidentifications [...] it any questions/concerns arise. PLAN OF TREATMENT No Information Progress Notes * Phillip BOURNEOB:1965 (59 yo F)Acc No.[id number]:02/08/2025 Patient:??Mindy BOURNE Provider:??Edna Flores PA-C :1965?Age:59 Y?Sex:Fe male Date:02/08/2025 Address:[address] [place], [place] [id number] Subjective: * Chief Complaints: * ? * HPI: ?Constitutional:? Mindy is a 59-year-old female here today for weight management follow up. She has not been seen in the past 5 months. Past medical history significant for aortic valve replacement in 2010 for congenital aortic valve issue. She is currently on warfarin and has a home INR monitor and is managed by [facility]. She also has history of hypertension. She did undergo a cardiac ablation in the fall. She was previously on Wegovy and was finding that it was causing heart palpitations even after the ablation. She is currently followed by cardiology and ultimately they did suggest that she stop the Wegovy. She has been off of it for quite some time now and has noticed her symptoms have resolved. She is wondering about other medication options that would not cause heart racing. ?Highest weight: 223.9 ?Lowest weight: 130's ?Current weight: 204.8, BMI 34.9 ?Weight last visit: 215.8, BMI 36.8 ?Goal weight: 150 ?Updated Seca scale reviewed in detail. Weight is down 11 pounds. Fat mass is down 11 pounds. Muscle mass is up 4 pounds. Waist circumference down 1-1/2 inches. * ROS:?All Other Systems:?Review of Systems (ROS)??All others negative except those mentioned in HPI.? * Medical History:?? * Medications:??Taking Magnesi um Oxide 400 MG Tablet 1 tablet as needed Orally Once a day , Taking Coumadin , Taking Metoprolol Succinate 100 MG Capsule ER 24 Hour Sprinkle 1 capsule Orally Once a day , Taking PriLOSEC OTC 20 MG Tablet Delayed Release 1 tablet 30 minutes before morning meal Orally Once a day Objective: * Physical Examination:?General: Well appearing, well nourished, age appropriate in no acute distress. Speaking in full, clear sentences. ?SKIN: Warm, dry intact. No rashes/lesions. ?HEENT: Normocephalic atraumatic. EOM intact. No nystagmus noted. PERRLA. ?LUNGS: Clear to auscultation bilaterally, no wheezes, rales or rhonchi ?CARDIAC: Regular rate and rhythm, no murmurs, rubs or gallops. ?Extremities: Warm and well perfused. No edema noted. ?Neuro: CN II-XI grossly intact. Speaking in full sentences. Hearing intact. Assessment: * Assessment: 1.??Morbid (severe) obesity due to excess calories - E66.01 (Primary)??2.??BMI 35.0-35.9,adult - Z68.35??3.??Essential hypertension - I10??4.??Aortic valve replaced - Z95.2??5.??Current use of care home anticoagulation - Z79.01?? #Morbid obesity. 01/11/25: 204.8 pounds, BMI 34.9. [...] which she declines at this time. Will follow- up again in 1 month sooner with any [...] Dictation was accomplished with the use of [employer] voice recognition software, prone to medical misidentifications and grammatical errors. This is unintentional and the practitioner does try to identify and correct these, but some could still be present. Please do not hesitate to contact practitioner for clarification. All questions answered to patients satisfaction. Patient verbalized understanding of diagnosis and treatments explained. To call sooner prior to next visit it any questions/concerns arise. Plan: * Treatment: * Procedure Codes:??07704 NO S HOW OFFICE VISIT * Images: Billing Information: * Visit Code:?? * Procedure Codes:?? 31161 NO SHOW OFFICE VISIT. * Sign off status: Pending * Provider:??Edna Flores PA-C Date:??01/26 History and Physical Notes * HPI (History of Present Illness) Category Sub-Category Detail Notes Category Not es Constitutional Mindy is a 59-year-old female here today for weight management follow up. She has not been seen in the past 5 months. Past medical history significant for aortic valve replacement in 2010 for congenital aortic valve issue. She is currently on warfarin and has a home INR monitor and is managed by [facility]. She also has history of hypertension. She did undergo a cardiac ablation in the fall. She was previously on Wegovy and was finding that it was causing heart palpitations even after the ablation. She is currently followed by cardiology and ultimately they did suggest that she stop the Wegovy. She has been off of it for quite some time now and has noticed her symptoms have resolved. She is wondering about other medication options that would not cause heart racing. Highest weight: 223.9 Lowest weight: 130's Current weight: 204.8, BMI 34.9 Weight last visit: 215.8, BMI 36.8 Goal weight: 150 Updated Seca scale reviewed in detail. Weight is down 11 pounds. Fat mass is down 11 pounds. Muscle mass is up 4 pounds. Waist circumference down 1-1/2 inches. Physical Examination Category Sub-Category Detail Notes Section Note s General: Well appearing, well nourished, age appropriate in no acute distress. Speaking in full, clear sentences. SKIN: Warm, dry intact. No rashes/lesions. HEENT: Normocephalic atraumatic. EOM intact. No nystagmus noted. PERRLA. LUNGS: Clear to auscultation bilaterally, no wheezes, rales or rhonchi CARDIAC: Regular rate and rhythm, no murmurs, rubs or gallops. Extremities: Warm and well perfused. No edema noted. Neuro: CN II-XI grossly intact. Speaking in full sentences. Hearing intact.
--- OUTSIDE RECORDS SUMMARY | 2025-02-22 18:52 | XMS_ITS ---
Author Organization [email or web address] Address [address] [place] [address] Care Team Providers Care Ammonia Print Operator Name Role Phone Edna Flores Unavailable [phone] REASON FOR VISIT n/s balance Encounters Encounter Location Date Provider Diagnosis [facility] [address] [address] 01/11/2025 Edna Flores PLAN OF TREATMENT No Information Progress Notes * Phillip BOURNEOB:1965 (59 yo F)Acc No.[id number]:01/11/2025 Patient:??Mindy BOURNE :1965?Age:59 Y?Sex:Fe male Address:[address] [place] [address] * true * Date:??
--- OUTSIDE RECORDS SUMMARY | 2025-02-22 18:52 | XMS_ITS ---
Author Organization [facility] Address [address] [place] [address] Care Team Providers Care Environmental Engineering Technician Name Role Phone Edna Flores Unavailable [phone] REASON FOR VISIT r/s no show Encounters Encounter Location Date Provider Diagnosis [address] [place] [id number] 02/09/2025 Edna Flores PLAN OF TREATMENT No Information Progress Notes * Phillip BOURNEOB:1965 (59 yo F)Acc No.[id number]:02/09/2025 Patient:??Mindy BOURNE :1965?Age:59 Y?Sex:Fe male Address:[address] [place] [id number] * true * Date:??
== END 2025-02-22 16:17 | disposition left against medical advice (07) ==
PROVIDERS: Physician Assistant; Emergency Provider Emergency Medicine
DX: R00.2 Palpitations (principal); Z79.899 Other long term (current) drug therapy
CPT/HCPCS: 36415; 80053; 83690; 83735; 85025; 93005; 99283

== ENCOUNTER → 2025-02-22 13:17 | Outpatient (BNV) | payer OTHER, SELFPAY | PROVIDERS: Emergency Provider Emergency Medicine; Visit Provider Internal Medicine Cardiovascular Disease | DX: I48.91 Unspecified atrial fibrillation (principal); I25.2 Old myocardial infarction | CPT/HCPCS: 93010 ==